=== PATIENT | female | born 1945 | race Caucasian/White ===

== ENCOUNTER 2017-12-14 12:04 | Inpatient (IN) | payer MEDICARE ==
[~2017-12-14] VITALS: Ht 165.1 cm; Wt 91.2 kg
--- OUTSIDE RECORDS SUMMARY | 2017-12-14 12:06 | XMS REPORT | Clinical Summary ---
Author Author [facility] Address Unknown Phone Unavailable Care Team Providers Care Exchange Operator Name Role Phone Baldev Cameron MD PCP Allergies Active Allergy Reactions Severity Noted Date Comments Sulfa (Sulfonamide Hives, Swelling 02/06/2017 Antibiotics) Current Medications Prescription Sig. Disp. Refills Start End Date Status Date diclofenac (VOLTAREN) 1 % Apply 1 application Active gel topically 3 (three) times a day. gabapentin (NEURONTIN) Take 300 mg by mouth Active 300 mg capsule daily. lactulose 10 gram/15 mL Take 30 g by mouth 2 Active (15 mL) solution (two) times a day. lisinopril Take 10 mg by mouth Active (PRINIVIL,ZESTRIL) 10 mg daily. tablet polyethylene glycol Take 17 g by mouth 2 Active (MIRALAX) 17 gram packet (two) times a day. miconazole (MICOTIN) 100 Insert 100 mg into the Active mg vaginal suppository vagina nightly. multivitamin with Take 1 tablet by mouth Active minerals tablet daily. insulin NPH (HumuLIN-N) Inject 10 Units under the Active 100 unit/mL injection skin nightly. nystatin (MYCOSTATIN) Apply 1 application Active 100,000 unit/gram powder topically 3 (three) times a day. Apply to under bilateral breast topically three times a day for rash Saccharomyces boulardii Take 250 mg by mouth 2 Active (FLORASTOR) 250 mg (two) times a day. capsule torsemide (DEMADEX) 10 MG Take 10 mg by mouth Active tablet daily. traMADol (ULTRAM) 50 mg Take 25 mg by mouth 3 Active tablet (three) times a day. traMADol (ULTRAM) 50 mg Take 50 mg by mouth Active tablet nightly. sertraline (ZOLOFT) 50 MG Take 75 mg by mouth Active tablet daily. Active Problems Not on file Encounters Date Type Specialty Care Team Description 02/06/2017 Hospital Radiology Braeden Varma MD Osteomyelitis of vertebra Encounter 02/06/2017 Ancillary Access Braeden Varma MD Osteomyelitis of vertebra Orders 01/30/2017 Transcribe Access Braeden Varma MD Osteomyelitis of vertebra Orders (Primary Dx) after 12/13/2016 Social History Tobacco Use Types Packs/Day Years Used Date Never Assessed Sex Assigned at Date Recorded Not on file Last Filed Vital Signs Vital Sign Reading Time Taken Blood Pressure 178/114 02/06/2017 12:09 PM [facility] [employer] Pulse 88 02/06/2017 12:09 PM [employer] [employer] Temperature 36.4 C (97.6 F) 02/06/2017 12:09 PM [employer] [employer] Respiratory Rate 16 02/06/2017 12:09 PM [employer] [employer] Oxygen Saturation 96% 02/06/2017 10:19 AM [employer] [employer] Inhaled Oxygen - - Concentration Weight 85.7 kg (189 lb) 02/06/2017 10:19 AM [employer] Height 165.1 cm (5' 5") 02/06/2017 10:19 AM [employer] [employer] Body Mass Index 31.45 02/06/2017 10:19 AM [employer] Plan of Treatment Health Maintenance Due Date Last Done Comments BREAST CANCER SCREENING 11/26/1993 COLON CANCER SCREENING 11/26/1993 SHINGRIX VACCINE (#1) 11/26/1993 ZOSTER VACCINE 2003 PNEUMOCOCCAL 11/26/2008 POLYSACCHARIDE VACCINE AGE 65 AND OVER PNEUMOCOCCAL-13 11/26/2008 INFLUENZA VACCINE 09/12/2017 Procedures Procedure Name Priority Date/Time Associated Diagnosis Comments IR ENDOVASCULAR CONSULT Routine 02/06/2017 Osteomyelitis of vertebra Results for this 11:40 AM [employer] procedure are in the results section. ZZESTIMATED GFR STAT 02/06/2017 Results for this 10:35 AM [employer] procedure are in the results section. HC COMPLETE BLD COUNT STAT 02/06/2017 Results for this W/AUTO DIFF 10:35 AM [employer] procedure are in the results section. PARTIAL THROMBOPLASTIN STAT 02/06/2017 Results for this TIME (PTT) 10:35 AM [employer] procedure are in the results section. PROTHROMBIN TIME WITH INR STAT 02/06/2017 Results for this 10:35 AM [employer] procedure are in the results section. BASIC METABOLIC PANEL STAT 02/06/2017 Results for this 10:35 AM [employer] procedure are in the results section. after 12/13/2016 Results * IR Endovascular Consult (02/06/2017 11:40 AM) Narrative Performed At Examination:IR ENDOVASCULAR CONSULT [facility] Clinical history:"M46.20 Osteomyelitis of vertebrasite unspecified, Osteomyeliltis" Comparison:There are no prior studies for comparison. Anesthesia:Lidocaine solution was injected into the involved tissues. Technique: The patient was prepared using sterile technique after signed, informed consent was obtained. Maximal sterile barrier technique was implemented.The suture securing the catheter to the skin surface was severed.The cuff of the indwelling left internal jugular tunneled central venous catheter was bluntly dissected from the soft tissues.The catheter was then removed without incident.Hemostasis was established at the venotomy/catheter exit site by applying direct pressure. Estimated blood loss:Less than 1 cc. Complications:None. Specimens removed:Not applicable. Assistants:None. IMPRESSION:The patient's indwelling left internal jugular tunneled central venous catheter was removed without incident as described above. Thank you for allowing us to participate in the care of your patient. [facility]-[id number] Procedure Note Hm Interface, Radiology Results Incoming - 02/16/2017 11:49 AM [employer] Examination: IR ENDOVASCULAR CONSULT Clinical history: "M46.20 Osteomyelitis of vertebra site unspecified, Osteomyeliltis" Comparison: There are no prior studies for comparison. Anesthesia: Lidocaine solution was injected into the involved tissues. Technique: The patient was prepared using sterile technique after signed, informed consent was obtained. Maximal sterile barrier technique was implemented. The suture securing the catheter to the skin surface was severed. The cuff of the indwelling left internal jugular tunneled central venous catheter was bluntly dissected from the soft tissues. The catheter was then removed without incident. Hemostasis was established at the venotomy/catheter exit site by applying direct pressure. Estimated blood loss: Less than 1 cc. Complications: None. Specimens removed: Not applicable. Assistants: None. IMPRESSION: The patient's indwelling left internal jugular tunneled central venous catheter was removed without incident as described above. Thank you for allowing us to participate in the care of your patient. [facility]-[id number] Performing Organization Address City/[facility]/Zipcode Phone Number [address] [place] [address] * Estimated GFR (02/06/2017 10:35 AM) GFR Non Af Amer 20 (A) mL/min/1.73 m2 [facility] DEPARTMENT OF PATHOLOGY AND [employer] MEDICINE GFR Af Amer 24 (A) mL/min/1.73 m2 [facility] DEPARTMENT OF Comment: PATHOLOGY AND Chronic kidney disease: <60 GENOMIC MEDICINE mL/min/1.73m2 Kidney failure: <15 mL/min/1.73m2 The estimated GFR is calculated from the IDMS-traceable Modification of Diet in Renal Disease Equation. The accuracy of the calculation is poor when the creatinine is normal. Calculated values >90 mL/min/1.73m2 are not reported. This equation has not been validated in children (<18 years), women, the elderly (>70 years), or ethnic groups other than Caucasians and Americans. Specimen Plasma specimen Performing Organization Address [facility] Phone Number [address] [place] [address] PATHOLOGY AND [employer] [facility] * Partial thromboplastin time, activated (02/06/2017 10:35 AM) PTT 30.3 23.0 - 36.0 sec [facility] DEPARTMENT OF Comment: PATHOLOGY AND PTT therapeutic range for [facility] unfractionated heparin is 61.0-112.0 seconds which corresponds to Anti-Xa 0.3-0.7 U/ml. Note:Change in Panic Value The PTT Panic Value is changing from 110 sec. to 100 sec. due to new instrumentation and reagents. Correlation studies have been performed to validate this result. Specimen Blood Performing Organization Address [facility] Phone Number [address] [place] [address] PATHOLOGY AND GENOMIC MEDICINE * Prothrombin time with INR (02/06/2017 10:35 AM) Prothrombin time 13.5 12.0 - 15.0 sec [facility] DEPARTMENT OF PATHOLOGY AND GENOMIC MEDICINE INR 1.02 0.92 - 1.12 [facility] DEPARTMENT OF Comment: PATHOLOGY AND For patients on anticoagulant GENOMIC MEDICINE therapy, reference ranges below: Indication: INR Value Treatment of Venous Thrombosis, 2.0-3.0 pulmonary emboli, or prophylaxis of a venous thrombosis, or systemic emboli. High dose, high risk patients 3.0-4.5 with mechanical valves. NOTE:INR values over 3.0 are sometimes associated with gastrointestinal hemorrhage, especially values over 4.0. Specimen Blood Performing Organization Address City/State/Zipcode Phone Number [facility] [address] [place] [address] PATHOLOGY AND GENOMIC MEDICINE * CBC with platelet and differential (02/06/2017 10:35 AM) WBC 8.2 4.2 - 11.0 k/uL [facility] DEPARTMENT OF PATHOLOGY AND GENOMIC MEDICINE RBC 3.70 (L) 4.04 - 5.86 m/uL [facility] DEPARTMENT OF PATHOLOGY AND GENOMIC MEDICINE HGB 11.7 11.5 - 15.3 g/dL [facility] DEPARTMENT OF PATHOLOGY AND GENOMIC MEDICINE HCT 37.1 34.0 - 45.0 % [facility] DEPARTMENT OF PATHOLOGY AND GENOMIC MEDICINE MCV 100.3 (H) 80.0 - 98.0 fL [facility] DEPARTMENT OF PATHOLOGY AND GENOMIC MEDICINE MCH 31.6 27.0 - 34.0 pg [facility] DEPARTMENT OF PATHOLOGY AND GENOMIC MEDICINE MCHC 31.5 31.5 - 36.5 g/dL [facility] DEPARTMENT OF PATHOLOGY AND GENOMIC MEDICINE RDW - SD 57.1 (H) 37.0 - 51.0 fL [facility] DEPARTMENT OF PATHOLOGY AND GENOMIC MEDICINE MPV 11.6 (H) 7.4 - 10.4 fL [facility] DEPARTMENT OF PATHOLOGY AND GENOMIC MEDICINE Platelet count 243 150 - 400 k/uL [facility] DEPARTMENT OF PATHOLOGY AND GENOMIC MEDICINE Nucleated RBC 0.00 /100 WBC [facility] DEPARTMENT OF PATHOLOGY AND GENOMIC MEDICINE Neutrophils 47.9 36.0 - 66.0 % [facility] DEPARTMENT OF PATHOLOGY AND GENOMIC MEDICINE Lymphocytes 38.6 24.0 - 44.0 % [facility] DEPARTMENT OF PATHOLOGY AND GENOMIC MEDICINE Monocytes 8.2 (H) 0.0 - 6.0 % [facility] DEPARTMENT OF PATHOLOGY AND GENOMIC MEDICINE Eosinophils 4.4 0.0 - 6.0 % [facility] DEPARTMENT OF PATHOLOGY AND GENOMIC MEDICINE Basophils 0.7 0.0 - 1.2 % [facility] DEPARTMENT OF PATHOLOGY AND GENOMIC MEDICINE Immature granulocytes 0.2 0.0 - 1.0 % [facility] DEPARTMENT OF PATHOLOGY AND GENOMIC MEDICINE Specimen Blood Performing Organization Address City/[facility] Phone Number [facility] [address] [place] [address] PATHOLOGY AND GENOMIC MEDICINE * Basic metabolic panel (02/06/2017 10:35 AM) Sodium 142 135 - 150 mEq/L [facility] DEPARTMENT OF PATHOLOGY AND GENOMIC MEDICINE Potassium 3.5 3.5 - 5.0 mEq/L [facility] DEPARTMENT OF PATHOLOGY AND GENOMIC MEDICINE Chloride 100 100 - 109 mEq/L [facility] DEPARTMENT OF PATHOLOGY AND GENOMIC MEDICINE CO2 35 (H) 24 - 32 mmol/L [facility] DEPARTMENT OF PATHOLOGY AND GENOMIC MEDICINE Anion gap 7 7 - 15 mEq/L [facility] DEPARTMENT OF Comment: PATHOLOGY AND Starting from May GENOMIC MEDICINE , anion gap calculation no longer incorporates potassium. Please note the change. BUN 52 (H) 7 - 18 mg/dL [facility] DEPARTMENT OF PATHOLOGY AND GENOMIC MEDICINE Creatinine 2.4 (H) 0.8 - 1.5 mg/dL [facility] DEPARTMENT OF PATHOLOGY AND GENOMIC MEDICINE Glucose 143 (H) 65 - 100 mg/dL [facility] DEPARTMENT OF PATHOLOGY AND GENOMIC MEDICINE Calcium 8.4 (L) 8.6 - 10.7 mg/dL [facility] DEPARTMENT OF PATHOLOGY AND GENOMIC MEDICINE Specimen Plasma specimen Performing Organization Address City/[facility]ode Phone Number [facility] [address] [place] [address] PATHOLOGY AND GENOMIC MEDICINE after 12/13/2016 Insurance Payer Benefit Subscriber ID Type Phone Address Plan / Group BCBS MEDICARE BLUE xxxxxxxxxxxx HMO MEDICARE ADVANTAGE HMO Home: [phone] [place] [id number]
--- OUTSIDE RECORDS SUMMARY | 2017-12-14 12:06 | XMS REPORT | CCD ---
Author Author Auto Generated Organization [facility] Address Unknown Phone Unavailable Care Team Providers Care Refrigeration Tech Name Role Phone ThorSonny CP [phone] Allergies, Adverse Reactions, Alerts Substance Reaction Status sulfa drugs Active Problem List Condition Effective Dates Status Anxiety Active Depression Active Hyperlipidemia Active Hypertension Active Sleep apnea Active Type 2 diabetes mellitus Active Medications Medication Instructions Start Date End Date Status DHEA 50 mg oral 50 mg=1 tabs, Oral, Daily, # 30 08/26/2014 09/09/2014 Ordered tablet tabs, 0 Refill(s) Vitamin D3 400 intl 1,200 IntUnit=3 tabs, Oral, Daily, 08/26/2014 09/09/2014 Ordered units oral tablet 0 Refill(s) metFORMIN 500 mg=1 tabs, Tab, Oral, BID, 08/29/2014 08/29/2014 Discontinued first dose 08/29/14 9:00:00 CDT cloNIDine 0.1 mg=1 tabs, Tab, Oral, As 08/28/2014 08/29/2014 Discontinued Indicated PRN for hypertension, first dose 08/28/14 20:40:00 CDT Probiotic Formula 1 caps, Oral, Daily, 0 Refill(s) 08/26/2014 09/09/2014 Ordered aspirin 81 mg oral 81 mg=1 tabs, Oral, Daily, 0 08/26/2014 09/09/2014 Ordered tablet Refill(s) ceFAZolin 2 gm, Soln-IV, IV Piggyback, Once, 08/28/2014 08/28/2014 Completed infuse over 30 minutes, first dose 08/28/14 13:46:00 CDT, stop date 08/28/14 13:46:00 CDT fenofibrate 160 mg, Oral, Daily, 0 Refill(s) 08/26/2014 09/09/2014 Ordered Milk of Magnesia 30 mL, Susp, Oral, Daily PRN for 08/28/2014 08/29/2014 Discontinued constipation, first dose 08/28/14 18:04:00 CDT acetaminophen 500 mg=1 tabs, Tab, Oral, q6hr PRN 08/28/2014 08/29/2014 Discontinued for pain mild-moderate (1-6), first dose 08/28/14 18:04:00 CDTMax 4gm acetaminophen in 24 hours ceFAZolin 1 gm, IV Piggyback, Once, infuse 08/28/2014 08/28/2014 Completed over 30 minutes, first dose 08/28/14 19:00:00 CDT, stop date 08/28/14 19:00:00 CDT ondansetron 4 mg=2 mL, Injection, IV Push, q6hr 08/28/2014 08/29/2014 Discontinued PRN for nausea/vomiting, first dose 08/28/14 18:04:00 CDT traMADol 50 mg=1 tabs, Tab, Oral, q6hr PRN 08/28/2014 08/29/2014 Discontinued for pain mild-moderate (1-6), first dose 08/28/14 18:04:00 CDT morphine 2 mg, Injection, IV Push, q2hr PRN 08/28/2014 08/29/2014 Discontinued for pain mild-moderate (1-6), first dose 08/28/14 18:04:00 CDT Thomas 10 mg-325 mg 1 tabs, Tab, Oral, q4hr, first dose 08/28/2014 08/28/2014 Canceled oral tablet 08/28/14 19:00:00 CDTMax 4gm acetaminophen in 24 hours acetaminophen 500 mg=1 tabs, Tab, Oral, q6hr PRN 08/28/2014 08/29/2014 Discontinued for temp greater than 101.5 F (38.6 C), first dose 08/28/14 18:04:00 CDTMax 4gm acetaminophen in 24 hours LR 1,000 mL 1,000 mL, IV, 35 mL/hr, start date 08/28/2014 08/29/2014 Discontinued 08/28/14 18:04:00 CDT Lipitor 20 mg oral 20 mg=1 tabs, Oral, qHS, 0 08/26/2014 09/09/2014 Ordered tablet Refill(s) Coreg 6.25 mg oral 6.25 mg=1 tabs, Oral, BID, 0 08/26/2014 09/09/2014 Ordered tablet Refill(s) Nifedical XL 30 mg, Oral, Daily, 0 Refill(s) 08/26/2014 09/09/2014 Ordered Catapres 0.1 mg, Oral, BID, 0 Refill(s) 08/26/2014 09/09/2014 Ordered Prozac 40 mg oral 40 mg=1 caps, Oral, Daily, 0 08/26/2014 09/09/2014 Ordered capsule Refill(s) Glucophage 850 mg 850 mg=1 tabs, Oral, BID, 0 08/26/2014 09/09/2014 Ordered oral tablet Refill(s) ropivacaine 150 mg=30 mL, Injection, IV, Once, 08/28/2014 08/28/2014 Completed first dose 08/28/14 14:18:00 CDT, stop date 08/28/14 14:18:00 CDT rocuronium 30 mg=3 mL, Injection, IV, Once, 08/28/2014 08/28/2014 Completed first dose 08/28/14 15:22:00 CDT, stop date 08/28/14 15:22:00 CDT Misc Medication 700 mL, Soln-IV, IV, Once, first 08/28/2014 08/28/2014 Completed dose 08/28/14 16:49:00 CDT, stop date 08/28/14 16:49:00 CDT fentaNYL 50 mcg=1 mL, Injection, IV, Once, 08/28/2014 08/28/2014 Completed first dose 08/28/14 16:23:00 CDT, stop date 08/28/14 16:23:00 CDT ceFAZolin 2 gm, Soln-IV, IV, Once, first dose 08/28/2014 08/28/2014 Completed 08/28/14 15:17:00 CDT, stop date 08/28/14 15:17:00 CDT propofol 150 mg=15 mL, Emulsion, IV, Once, 08/28/2014 08/28/2014 Completed first dose 08/28/14 15:22:00 CDT, stop date 08/28/14 15:22:00 CDT fentaNYL 50 mcg=1 mL, Injection, IV, Once, 08/28/2014 08/28/2014 Completed first dose 08/28/14 15:22:00 CDT, stop date 08/28/14 15:22:00 CDT midazolam 2 mg=2 mL, Injection, IV, Once, 08/28/2014 08/28/2014 Completed first dose 08/28/14 14:09:00 CDT, stop date 08/28/14 14:09:00 CDT fentaNYL 100 mcg=2 mL, Injection, IV, Once, 08/28/2014 08/28/2014 Completed first dose 08/28/14 14:09:00 CDT, stop date 08/28/14 14:09:00 CDT ondansetron 4 mg=2 mL, Injection, IV Push, 08/28/2014 08/29/2014 Discontinued q30min PRN for nausea/vomiting, order duration: 2 doses, first dose 08/28/14 17:41:00 CDT, stop date Limited # of times morphine 2 mg, IV Push, q5min PRN for pain 08/28/2014 08/29/2014 Discontinued severe (7-10), order duration: 5 doses, first dose 08/28/14 17:41:00 CDT, stop date Limited # of times Demerol HCl 12.5 mg=0.5 mL, Injection, IV Push, 08/28/2014 08/29/2014 Discontinued q5min PRN for Pain Mild (1-3), order duration: 4 doses, first dose 08/28/14 17:41:00 CDT, stop date Limited # of times Demerol HCl 12.5 mg=0.5 mL, Injection, IV Push, 08/28/2014 08/29/2014 Discontinued q5min PRN for shivers, order duration: 4 doses, first dose 08/28/14 17:41:00 CDT, stop date Limited # of times morphine 1 mg, IV Push, q5min PRN for Pain 08/28/2014 08/29/2014 Discontinued Moderate (4-6), order duration: 5 doses, first dose 08/28/14 17:41:00 CDT, stop date Limited # of times LR 1,000 mL 1,000 mL, IV, 100 mL/hr, start date 08/28/2014 08/29/2014 Discontinued 08/28/14 13:46:00 CDT, For Adults lidocaine 1% 0.5 mL, Injection, Subcutaneous, 08/28/2014 08/28/2014 Completed injectable solution Once, first dose 08/28/14 14:00:00 CDT, stop date 08/28/14 14:00:00 CDT Thomas 10 mg-325 mg 1 tabs, Tab, Oral, q4hr PRN for 08/28/2014 08/29/2014 Discontinued oral tablet pain mild-moderate (1-6), first dose 08/28/14 18:23:00 CDTMax 4gm acetaminophen in 24 hours Cinnamon 500 mg oral 1,000 mg=2 caps, Oral, BID, # 100 08/26/2014 09/09/2014 Ordered capsule caps, 0 Refill(s) Cranberry 0 Refill(s) 08/26/2014 09/09/2014 Ordered biotin 0 Refill(s) 08/26/2014 09/09/2014 Ordered Vitamin C 500 mg 500 mg=1 tabs, Oral, BID, 0 08/26/2014 09/09/2014 Ordered oral tablet Refill(s) calcium carbonate 0 Refill(s) 08/26/2014 09/09/2014 Ordered Centrum Ultra 1 tabs, Oral, Daily, 0 Refill(s) 08/26/2014 09/09/2014 Ordered Women's Vital Signs Most recent to oldest [Reference Range]: 1 2 3 Temperature Oral [35.8-37.3 DegC] 36.8 DegC (08/29/2014 06:00:00) 36.7 DegC (08/28/2014 19:00:00) Temperature Skin [36-37 DegC] 36.6 DegC (08/28/2014 16:45:00) Temperature Temporal Artery [36.3-37.8 DegC] 36.4 DegC (08/28/2014 13:02:00) Temperature Farenheit 98.24 DegF (08/29/2014 06:00:00) 98.06 DegF (08/28/2014 19:00:00) Peripheral Pulse Rate [55-105 bpm] 89 bpm (08/29/2014 06:00:00) 81 bpm (08/28/2014 13:02:00) Heart Rate Monitored [60-100 bpm] 89 bpm (08/29/2014 05:00:00) 90 bpm (08/28/2014 22:00:00) 85 bpm (08/28/2014 17:40:00) Respiratory Rate [12-20] 18 (08/29/2014 06:00:00) 18 (08/29/2014 05:00:00) 18 (08/28/2014 22:00:00) SpO2 [90-100 %] 96 % (08/29/2014 06:00:00) 96 % (08/29/2014 05:00:00) 94 % (08/28/2014 17:40:00) Blood Pressure [110-120/65-85 mmHg] <content ID='[id number]'>165</content>/<content ID='[id number]'>85</content> mmHg *HI* (08/29/2014 06:00:00) <content ID='[id number]'>165</content>/<content ID='[id number]'>85</content> mmHg *HI* (08/29/2014 05:00:00) <content ID='[id number]'>163</content>/<content ID='[id number]'>83</content> mmHg *HI* (08/28/2014 22:00:00) Mean Arterial Pressure, Cuff 111.7 mmHg (08/29/2014 06:00:00) 111.7 mmHg (08/29/2014 05:00:00) 119.3 mmHg (08/28/2014 17:40:00) Most recent to oldest [Reference Range]: 1 2 3 Height 166 cm (08/28/2014 14:00:00) 166 cm (08/26/2014 14:13:00) Height/Length Dosing 166 cm (08/28/2014 14:00:00) 166 cm (08/26/2014 14:13:00) Height Inches 65.547042 in (08/28/2014 14:00:00) 65 in (08/26/2014 14:13:00) Weight 93.8 kg (08/28/2014 14:00:00) Weight Dosing 93.8 kg (08/28/2014 14:00:00) Weight Pounds 206.36 lb (08/28/2014 14:00:00) [place] Body Weight Calculated 57.815 kg (08/28/2014 14:00:00) BSA Measured 2.288317 m2 (08/28/2014 14:00:00) Body Mass Index 34.534951 kg/m2 (08/28/2014 14:00:00) Results LABORATORY Most recent to oldest [Reference Range]: 1 Hemoglobin [12.0-16.0 gm/dL] 9.6 gm/dL 14 *LOW* (08/26/201412:00) Hematocrit [36.0-48.0 %] 29.6 % 13 *LOW* (08/26/2014:00) PT [12.0-14.7 seconds] 13.9 seconds 4 *NA* (08/26/2014:00) INR [0.85-1.17] 1.07 5, 6 *NA* (08/26/2014:00) PTT [22.9-35.8 seconds] 31.0 seconds 16, 17 *NA* (08/26/2014:00) Sodium Level [135-145 mEq/L] 140 mEq/L 18 *NA* (08/26/201412:00) Potassium Level [3.5-5.1 mEq/L] 4.9 mEq/L 15 *NA* (08/26/201412:00) Chloride Level [95-109 mEq/L] 106 mEq/L 12 *NA* (08/26/201412:00) Total Carbon Dioxide Level [24-32 mEq/L] 25 mEq/L 11 *NA* (08/26/2014:12:00) AGAP [10.0-20.0 mEq/L] 13.9 mEq/L 1 *NA* (08/26/2014:12:00) BUN [7-22 mg/dL] 48 mg/dL 9 *HI* (08/26/201412:00) Creatinine [0.5-1.4 mg/dL] 2.2 mg/dL 19 *HI* (08/26/2014:12:00) Glucose Lvl [70-99 mg/dL] 193 mg/dL 2, 3 *HI* (08/26/2014 15:12:00) Calcium Level [8.5-10.5 mg/dL] 8.6 mg/dL 10 *NA* (08/26/2014 15:12:00) eGFR 22 mL/min/1.73m2 7, 8 *NA* (08/26/2014 15:12:00) 1Reference Lab: [facility], [address] [place] [address] 2Reference Lab: [facility], [address] [place] [address] 3Result Comment: Adult reference range values reflect the clinical guidelines of the [employer]. 4Reference Lab: [facility], [address] [place] [address] 5Reference Lab: [facility], [address] [place] [address] 6Result Comment: RECOMMENDED RANGES FOR PROTIME INR: 2.0-3.0 for most medical and surgical thromboembolic states. 2.5-3.5 for artificial heart valves and recurrent embolism. INR SHOULD BE USED ONLY FOR PATIENTS ON STABLE ANTICOAGULANT THERAPY. 7Reference Lab: [facility], [address] [place] [address] 8Result Comment: The eGFR is calculated using the CKD-EPI formula. In most young, healthy individuals the eGFR will be >90 mL/min/1.73m2. The eGFR declines with age. An eGFR of 60-89 may be normal in some populations, particularly the elderly, for whom the CKD-EPI formula has not been extensively validated. Use of the eGFR is not recommended in the following populations: Individuals with unstable creatinine concentrations, including patients and those with serious co-morbid conditions. Patients with extremes in muscle mass or diet. The data above are obtained from the National Kid[employer] Disease Education Program (NKDEP) which additionally recommends that when the eGFR is used in patients with extremes of body mass index for purposes of drug dosing, the eGFR should be multiplied by the estimated BMI. 9Reference Lab: [facility], [address] [place] [address] 10Reference Lab: [facility], [address] [place] [address] 11Reference Lab: [facility], [place] [address] 12Reference Lab: [facility], [place] [address] 13Reference Lab: [facility], [id number] [place] [address] 14Reference Lab: [facility], [id number] [place] [address] 15Reference Lab: [facility], [id number] [place] [address] 16Reference Lab: [facility], [address] [place] [address] 17Result Comment: Heparin Therapeutic Range: 57 - 92 Seconds 18Reference Lab: [facility], [place] [address] 19Reference Lab: [facility], [id number] [place] [address] Procedures Procedures Date Related Diagnosis appendectomy Colonoscopy endoscopy orif left little toe retina reattachment right eye1 06/30/2014 00:00:00 rotator cuff repair Tubal ligation 1Has an oil bubble in eye to keep instact
--- OUTSIDE RECORDS SUMMARY | 2017-12-14 12:06 | XMS REPORT | Continuity of Care Document ---
Author Author [facility] Interface Address Unknown Phone Unavailable Problems Problem Status Onset Date Classification Date Reported Comments Source Anxiety Active Problem 08/31/2014 [facility] Depression Active Problem 08/31/2014 [facility] Hyperlipidemia Active Problem 08/31/2014 [facility] Hypertension Active Problem 08/31/2014 [facility] Sleep apnea Active Problem 08/31/2014 [facility] Type 2 diabetes mellitus Active Problem 08/31/2014 [facility] Medications Medication Details Route Status Patient Instructions Ordering Provider Order Date Source metFORMIN 500 mg=1 tabs, Tab, Oral, BID, first dose 08/29/14 9:00:00 CDT Inactive D[place] 08/29/2014 [facility] cloNIDine 0.1 mg=1 tabs, Tab, Oral, As Indicated PRN for hypertension, first dose 08/28/14 20:40:00 CDT No Longer Active D[place] 08/29/2014 [facility] ceFAZolin 1 gm, IV Piggyback, Once, infuse over 30 minutes, first dose 08/28/14 19:00:00 CDT, stop date 08/28/14 19:00:00 CDT Inactive Daisetta 08/29/2014 [facility] Bronx 10 mg-325 mg oral tablet 1 tabs, Tab, Oral, q4hr, first dose 08/28/14 19:00:00 CDTMax 4gm acetaminophen in 24 hours Inactive D[place] 08/29/2014 [facility] Bronx 10 mg-325 mg oral tablet 1 tabs, Tab, Oral, q4hr PRN for pain mild-moderate (1-6), first dose 08/28/14 18:23:00 CDTMax 4gm acetaminophen in 24 hours No Longer Active D[place] 08/28/2014 [facility] Milk of Magnesia 30 mL, Susp, Oral, Daily PRN for constipation, first dose 08/28/14 18:04:00 CDT No Longer Active D[place] 08/28/2014 [facility] acetaminophen 500 mg=1 tabs, Tab, Oral, q6hr PRN for pain mild-moderate (1-6), first dose 08/28/14 18:04:00 CDTMax 4gm acetaminophen in 24 hours No Longer Active [place] 08/28/2014 [facility] ondansetron 4 mg=2 mL, Injection, IV Push, q6hr PRN for nausea/vomiting, first dose 08/28/14 18:04:00 CDT No Longer Active [place] 08/28/2014 [facility] traMADol 50 mg=1 tabs, Tab, Oral, q6hr PRN for pain mild- moderate (1-6), first dose 08/28/14 18:04:00 CDT No Longer Active [place] 08/28/2014 [facility] morphine 2 mg, Injection, IV Push, q2hr PRN for pain mild- moderate (1-6), first dose 08/28/14 18:04:00 CDT No Longer Active [place] 08/28/2014 [facility] LR 1,000 mL 1,000 mL, IV, 35 mL/hr, start date 08/28/14 18:04:00 CDT No Longer Active [place] 08/28/2014 [facility] ondansetron 4 mg=2 mL, Injection, IV Push, q30min PRN for nausea/vomiting, order duration: 2 doses, first dose 08/28/14 17:41:00 CDT, stop date Limited # of times No Longer Active [facility] 08/28/2014 [facility] morphine 2 mg, IV Push, q5min PRN for pain severe (7-10), order duration: 5 doses, first dose 08/28/14 17:41:00 CDT, stop date Limited # of times No Longer Active [facility] 08/28/2014 [facility] Demerol HCl 12.5 mg=0.5 mL, Injection, IV Push, q5min PRN for Pain Mild (1-3), order duration: 4 doses, first dose 08/28/14 17:41:00 CDT, stop date Limited # of times No Longer Active [facility] 08/28/2014 [facility] Misc Medication 700 mL, Soln-IV, IV, Once, first dose 08/28/14 16:49:00 CDT, stop date 08/28/14 16:49:00 CDT Inactive [facility] 08/28/2014 [facility] fentaNYL 50 mcg=1 mL, Injection, IV, Once, first dose 08/28/14 16:23:00 CDT, stop date 08/28/14 16:23:00 CDT Inactive [facility] 08/28/2014 [facility] rocuronium 30 mg=3 mL, Injection, IV, Once, first dose 08/28/14 15:22:00 CDT, stop date 08/28/14 15:22:00 CDT Inactive [facility] 08/28/2014 [facility] propofol 150 mg=15 mL, Emulsion, IV, Once, first dose 08/28/14 15:22:00 CDT, stop date 08/28/14 15:22:00 CDT Inactive [facility] 08/28/2014 [facility] fentaNYL 50 mcg=1 mL, Injection, IV, Once, first dose 08/28/14 15:22:00 CDT, stop date 08/28/14 15:22:00 CDT Inactive [facility] 08/28/2014 [facility] ceFAZolin 2 gm, Soln-IV, IV, Once, first dose 08/28/14 15:17:00 CDT, stop date 08/28/14 15:17:00 CDT Inactive [facility] 08/28/2014 [facility] ropivacaine 150 mg=30 mL, Injection, IV, Once, first dose 08/28/14 14:18:00 CDT, stop date 08/28/14 14:18:00 CDT Inactive [facility] 08/28/2014 [facility] midazolam 2 mg=2 mL, Injection, IV, Once, first dose 08/28/14 14:09:00 CDT, stop date 08/28/14 14:09:00 CDT Inactive [facility] 08/28/2014 [facility] fentaNYL 100 mcg=2 mL, Injection, IV, Once, first dose 08/28/14 14:09:00 CDT, stop date 08/28/14 14:09:00 CDT Inactive [facility] 08/28/2014 [facility] lidocaine 1% injectable solution 0.5 mL, Injection, Subcutaneous, Once, first dose 08/28/14 14:00:00 CDT, stop date 08/28/14 14:00:00 CDT Inactive [facility] 08/28/2014 [facility] ceFAZolin 2 gm, Soln-IV, IV Piggyback, Once, infuse over 30 minutes, first dose 08/28/14 13:46:00 CDT, stop date 08/28/14 13:46:00 CDT Inactive [facility] 08/28/2014 [facility] LR 1,000 mL 1,000 mL, IV, 100 mL/hr, start date 08/28/14 13:46:00 CDT, For Adults No Longer Active [facility] 08/28/2014 [facility] Cranberry 0 Refill(s) Active 08/26/2014 [facility] Cinnamon 500 mg oral capsule 1,000 mg=2 caps, Oral, BID, # 100 caps, 0 Refill(s) Active 08/26/2014 [facility] biotin 0 Refill(s) Active 08/26/2014 [facility] Vitamin C 500 mg oral tablet 500 mg=1 tabs, Oral, BID, 0 Refill(s) Active 08/26/2014 [facility] calcium carbonate 0 Refill(s) Active 08/26/2014 [facility] Centrum Ultra Women's 1 tabs, Oral, Daily, 0 Refill(s) Active 08/26/2014 [facility] DHEA 50 mg oral tablet 50 mg=1 tabs, Oral, Daily, # 30 tabs, 0 Refill(s) Active 08/26/2014 [facility] Vitamin D3 400 intl units oral tablet 1,200 IntUnit=3 tabs, Oral, Daily, 0 Refill(s) Active 08/26/2014 [facility] Probiotic Formula 1 caps, Oral, Daily, 0 Refill(s) Active 08/26/2014 [facility] aspirin 81 mg oral tablet 81 mg=1 tabs, Oral, Daily, 0 Refill(s) Active 08/26/2014 [facility] fenofibrate 160 mg, Oral, Daily, 0 Refill(s) Active 08/26/2014 [facility] Lipitor 20 mg oral tablet 20 mg=1 tabs, Oral, qHS, 0 Refill(s) Active 08/26/2014 [facility] Coreg 6.25 mg oral tablet 6.25 mg=1 tabs, Oral, BID, 0 Refill(s) Active 08/26/2014 [facility] Nifedical XL 30 mg, Oral, Daily, 0 Refill(s) Active 08/26/2014 [facility] Catapres 0.1 mg, Oral, BID, 0 Refill(s) Active 08/26/2014 [facility] Prozac 40 mg oral capsule 40 mg=1 caps, Oral, Daily, 0 Refill(s) Active 08/26/2014 [facility] Glucophage 850 mg oral tablet 850 mg=1 tabs, Oral, BID, 0 Refill(s) Active 08/26/2014 [facility] Allergies, Adverse Reactions, Alerts Substance Category Reaction Severity Reaction type Status Date Reported Comments Source sulfa drugs drug allergy Allergy [facility] Immunizations Immunization Date Given Site Status Last Updated Comments Source Results Order Name Results Value Reference Range Date Interpretation Comments Source LABORATORY PTT 31.0 s 22.9 - 35.8 08/26/2014 17Result Comment: Heparin Therapeutic Range: 57 - 92 Seconds [facility] LABORATORY PT 13.9 s 12.0 - 14.7 08/26/2014 4Reference Lab: [facility], [address] [place] [address] LABORATORY INR 1.07 0.85 - 1.17 08/26/2014 6Result Comment: RECOMMENDED RANGES FOR PROTIME INR: 2.0-3.0 for most medical and surgical thromboembolic states. 2.5-3.5 for artificial heart valves and recurrent embolism. INR SHOULD BE USED ONLY FOR PATIENTS ON STABLE ANTICOAGULANT THERAPY. [facility] LABORATORY Carbon Dioxide Level 25 meq/L 24 - 32 08/26/2014 11Reference Lab: [facility], [address] [place] [address] LABORATORY Chloride Level 106 meq/L 95 - 109 08/26/2014 12Reference Lab: [facility], [address] [place] [address] LABORATORY Calcium Level 8.6 mg/dL 8.5 - 10.5 08/26/2014 10Reference Lab: [facility], [address] [place] [address] LABORATORY Potassium Level 4.9 meq/L 3.5 - 5.1 08/26/2014 15Reference Lab: [facility], [address] [place] [address] LABORATORY Sodium Level 140 meq/L 135 - 145 08/26/2014 18Reference Lab: [facility], [address] [place] [address] LABORATORY BUN 48 mg/dL 7 - 22 08/26/2014 HI 9Reference Lab: [facility], [address] [place] [address] LABORATORY Glucose Lvl 193 mg/dL 70 - 99 08/26/2014 HI 3Result Comment: Adult reference range values reflect the clinical guidelines of the [place] [employer]. [facility] LABORATORY Creatinine 2.2 mg/dL 0.5 - 1.4 08/26/2014 HI 19Reference Lab: [facility], [address] [place] [address] LABORATORY eGFR 22 mL/min/1.73m2 08/26/2014 8Result Comment: The eGFR is calculated using [...] should be multiplied by the estimated BMI. [facility] LABORATORY AGAP 13.9 meq/L 10.0 - 20.0 08/26/2014 1Reference Lab: [facility], [address] LABORATORY Hematocrit 29.6 % 36.0 - 48.0 08/26/2014 LOW 13Reference Lab: [facility], [address] LABORATORY Hemoglobin 9.6 g/dL 12.0 - 16.0 08/26/2014 LOW 14Reference Lab: [facility], [address] Vital Signs Vital Sign Value Date Comments Source Temperature Oral (F) 36.8 Lali 08/29/2014 [facility] Systolic (mm Hg) <content ID='[id number]'>165</content>/<content ID='[id number]'>85</content> 08/29/2014 [facility] Respitory Rate 18 08/29/2014 [facility] Peripheral Pulse Rate 89 08/29/2014 [facility] Respitory Rate 18 08/29/2014 [facility] Heart Rate 89 08/29/2014 [facility] Systolic (mm Hg) <content ID='[id number]'>165</content>/<content ID='[id number]'>85</content> 08/29/2014 [facility] Heart Rate 90 08/29/2014 [facility] Respitory Rate 18 08/29/2014 [facility] Systolic (mm Hg) <content ID='[id number]'>163</content>/<content ID='[id number]'>83</content> 08/29/2014 [facility] Temperature Oral (F) 36.7 Lali 08/29/2014 [facility] Heart Rate 85 08/28/2014 [facility] Temperature Oral (F) 36.6 Lali 08/28/2014 [facility] Height 166 cm 08/28/2014 [facility] Weight 34.236250 08/28/2014 [facility] Weight 93.8 08/28/2014 [facility] Peripheral Pulse Rate 81 08/28/2014 [facility] Temperature Oral (F) 36.4 Lali 08/28/2014 [facility] Height 166 cm 08/26/2014 [facility] Encounters Location Location Details Encounter Type Encounter Number Reason For Visit Attending Provider ADM Date DC Date Status Source [facility] Outpatient [id number] Sonny Mcrae 08/28/2014 08/29/2014 Active [facility] Procedures Procedure Code Date Perfomer Comments Source retina reattachment right eye<sup>1</sup> 06/30/2014 1Has an oil bubble in eye to keep instact [facility] appendectomy [facility] Colonoscopy [id number] [facility] endoscopy [facility] orif left little toe [facility] rotator cuff repair [facility] Tubal ligation [id number] [facility]
--- OUTSIDE RECORDS SUMMARY | 2017-12-14 12:06 | XMS REPORT ---
Author Author [facility] Address Unknown Phone Unavailable Care Team Providers Care Sales Support Rep Name Role Phone NONE, NONE Unavailable Unavailable KACY BAKER Unavailable Unavailable Problems This patient has no known problems. Allergies, Adverse Reactions, Alerts This patient has no known allergies or adverse reactions. Medications This patient has no known medications. Encounters Start Date/Time End Date/Time Encounter Type Admission Type Attending Clinicians Care Facility Care Department Encounter ID 2017-03-23 09:05:00 Inpatient C NONE, NONE [facility] PT [id number] 2017-04-19 11:05:00 2017-05-20 23:59:00 Outpatient C KACY BAKER [facility] PT [id number]
[2017-12-14] MEDS ORDERED: LISINOPRIL10 MG PO (12:30)
[2017-12-14] MEDS ORDERED: MYRBETRIQ50 MG PO (12:30)
[2017-12-14] MEDS ORDERED: HYDRALAZINE HCL50 MG PO (12:30)
[2017-12-14] MEDS ORDERED: PANTOPRAZOLE SO40 MG PO (12:30)
[2017-12-14] MEDS ORDERED: GABAPENTIN300 MG PO (12:30)
[2017-12-14] MEDS ORDERED: TRICOR48 MG PO (12:30)
[2017-12-14] MEDS ORDERED: DOXYCYCLINE HY100 MG PO (12:30)
[2017-12-14] MEDS ORDERED: FLUOXETINE HCL40 MG PO (12:30)
[2017-12-14] MEDS ORDERED: ISOSORBIDE MONO20 MG PO (12:30)
[2017-12-14] MEDS ORDERED: LOW DOSE ASPIRI81 MG PO (12:30)
[2017-12-14] MEDS ORDERED: FUROSEMIDE20 MG PO (12:30)
[2017-12-14] MEDS ORDERED: SERTRALINE HCL50 MG PO (12:30)
[2017-12-14] MEDS ORDERED: PANTOPRAZOLE 40 MG 10ML VIAL IV NR (12:32)
[2017-12-14] MEDS ORDERED: ONDANSETRON HCL INJ 2 MG/ML VIAL IV NR (12:45)
[2017-12-14] MEDS ORDERED: SODIUM CHLORIDE 0.9% 500ML 500 ML IV ONE (12:45)
[2017-12-14 12:52] LABS: BASOPHILS # (AUTO) 0.1 (0.0-0.1); BASOPHILS % 0.9 % (0.0-1.0); EOSINOPHILS # (AUTO) 0.3 (0.0-0.4); EOSINOPHILS % 4.3 % (0.0-6.0); HEMATOCRIT 37.4 % (34.2-44.1); HEMOGLOBIN 11.1 g/dL (12.0-16.0); LYMPHOCYTES # (AUTO) 1.3 (1.0-3.2); LYMPHOCYTES % 18.9 % (18.0-39.1); MEAN CORPUSCULAR HEMOGLOBIN 26.9 pg (28-32); MEAN CORPUSCULAR HGB CONC 29.7 g/dL (31-35); MEAN CORPUSCULAR VOLUME 90.8 fL (81-99); MONOCYTES # (AUTO) 0.6 (0.2-0.8); MONOCYTES % 8.4 % (4.4-11.3); NEUTROPHILS # (AUTO) 4.5 (2.1-6.9); NEUTROPHILS % 67.2 % (38.7-80.0); PLATELET COUNT 287 x10e3/uL (140-360); RED BLOOD COUNT 4.12 x10e6/uL (3.6-5.1); RED CELL DISTRIBUTION WIDTH 15.3 % (11.7-14.4)
[2017-12-14 12:56] LABS: INR 1.15; PROTHROMBIN TIME 15.7 seconds (11.9-14.5)
[2017-12-14 12:57] LABS: PARTIAL THROMBOPLASTIN TIME 31.4 seconds (23.8-35.5)
[2017-12-14 13:04] LABS: ALBUMIN 3.1 g/dL (3.5-5.0); ALBUMIN/GLOBULIN RATIO 1.1 (0.8-2.0); ANION GAP 15.3 mmol/L (8-16); CALCIUM 9.4 mg/dL (8.4-10.2); CREATININE, SERUM 2.6 mg/dL (0.57-1.11); MAGNESIUM 2.1 MG/DL (1.3-2.1); POTASSIUM 4.3 mmol/L (3.5-5.1)
[2017-12-14 13:11] LABS: CREATINE KINASE MB 4.1 ng/mL (0-5.0)
--- NOTE | 2017-12-14 13:18 | Diagnostic Imaging Report ---
EXAMINATION: CHEST SINGLE (PORTABLE) INDICATION: Chest pain COMPARISON: None FINDINGS: TUBES and LINES: None. LUNGS: Moderate lung volumes. Mild patchy bibasilar opacities. No evidence of pulmonary edema. PLEURA: No pleural effusion or pneumothorax. HEART AND MEDIASTINUM: Mild enlargement of the cardiomediastinal silhouette. BONES AND SOFT TISSUES: No acute bony abnormality. Partially seen cervical spine fixation hardware and bilateral rotator cuff anchors. UPPER ABDOMEN: No free air under the diaphragm. IMPRESSION: Mild cardiomegaly without evidence of pulmonary edema. Mild patchy bibasilar opacities, likely atelectasis. Signed by: Dr. Hamlet Cristina MD on 12/14/2017 1:14 PM
[2017-12-14 13:27] LABS: B-TYPE NATRIURETIC PEPTIDE2 4379.5 pg/mL (0-100)
[2017-12-14 13:44] LABS: BILIRUBIN,URINE NEGATIVE (NEGATIVE); CLARITY,URINE SL CLOUDY (CLEAR); COLOR,URINE YELLOW (YELLOW); KETONES,URINE NEGATIVE (NEGATIVE); LEUKOCYTE ESTERASE ,URINE 1+ (NEGATIVE); NITRITE,URINE NEGATIVE (NEGATIVE); PROTEIN,URINE DIPSTICK 2+ (NEGATIVE); URINE UROBILINOGEN 0.2 mg/dL (0.2 - 1)
[2017-12-14 13:53] LABS: WBC,URINE (MAN) >50 /HPF (0-5)
[2017-12-14 13:54] LABS: BACTERIA,URINE MANY /HPF; RBC,URINE 0-5 /HPF (0-5)
[2017-12-14] MEDS: CEFTRIAXONE SOD 1 GM VIAL IV SCH (14:25)
--- NOTE | 2017-12-14 15:54 | Diagnostic Imaging Report ---
EXAMINATION: Right upper quadrant ultrasound CLINICAL INDICATION: Abdominal pain COMPARISON: None DISCUSSION: Transverse and longitudinal images of the right upper quadrant were obtained. The liver is normal in size measuring 14centimeters in length in the right midclavicular line and shows normal echogenicity. No focal masses are seen in the liver. There is no intrahepatic biliary dilatation. The common bile duct is normal in caliber and measures 0.4 cm. The main portal vein is normal in caliber and measures 0.9 cm with normal hepatopetal flow. The gallbladder contains multiple gallstones. The gallbladder wall measures 0.3 cm. Negative Hines's sign. The visualized portions of the pancreatic body are unremarkable. The right kidney measures 11.2 centimeters in length. There is normal renal cortical echogenicity and no hydronephrosis, mass or shadowing calculi. The visualized portions of the great vessels are normal. No free fluid is seen. IMPRESSION: Cholelithiasis without cholecystitis Signed by: Dr. Wyatt Cooper M.D. on 12/14/2017 3:51 PM
--- NOTE | 2017-12-14 16:44 | Diagnostic Imaging Report ---
EXAMINATION: CT of the abdomen and pelvis without contrast. TECHNIQUE: Helical CT images of the abdomen and pelvis were performed from the lung bases to the lesser trochanters. No intravenous contrast was given per renal stone protocol. Coronal and sagittal reformatted images were obtained. Dose modulation, iterative reconstruction, and/or weight based adjustment of the mA/kV was utilized to reduce the radiation dose to as low as reasonably achievable. COMPARISON: None. CLINICAL HISTORY:abdominal pain DISCUSSION: ABSENCE OF INTRAVENOUS CONTRAST DECREASES SENSITIVITY FOR DETECTION OF FOCAL LESIONS AND VASCULAR PATHOLOGY. ABDOMEN/PELVIS: LOWER THORAX: Small right pleural effusion and adjacent atelectasis. Right lower lung calcified granuloma. HEPATOBILIARY:No focal hepatic lesions. Cholelithiasis. SPLEEN: No splenomegaly. PANCREAS: No focal masses or ductal dilatation. ADRENALS: No adrenal nodules. KIDNEYS/URETERS: No hydronephrosis, stones, or solid mass lesions. PELVIC ORGANS/BLADDER: Verdugo catheter. PERITONEUM/RETROPERITONEUM: No free air or fluid. LYMPH NODES: No intra-abdominal,retroperitoneal, pelvic or inguinal lymphadenopathy. VESSELS: Vascular calcifications. GI TRACT: Colonic diverticulosis without inflammatory change. BONES AND SOFT TISSUES: Lumbar spondylosis most prominent at L3-L4. IMPRESSION: Cholelithiasis. Diverticulosis. No inflammatory changes Signed by: Dr. Wyatt Cooper M.D. on 12/14/2017 4:41 PM
[2017-12-14] MEDS: METRONIDAZOLE 500MG/NS 100ML 100 ML IV SCH ×2 (17:11→23:14)
[2017-12-14] MEDS ORDERED: SODIUM CHLORIDE 0.9% 1000ML 1,000 ML IV ONE (17:15)
[2017-12-14] MEDS ORDERED: MORPHINE SULFATE 2 MG/ML SYR IV PRN (17:15)
[2017-12-14] MEDS ORDERED: ONDANSETRON HCL INJ 2 MG/ML VIAL IV PRN (17:15)
[2017-12-14] MEDS ORDERED: DEXTROSE 50% SYRINGE 50 ML IV PRN (17:30)
--- OUTSIDE RECORDS SUMMARY | 2017-12-14 17:41 | XMS REPORT | Clinical Summary ---
Author Author [facility] Organization [facility] Address Unknown Phone Unavailable Care Team Providers Care Administrative Services Assistant Name Role Phone Baldev Cameron MD PCP [...] Taken Blood Pressure 178/114 02/06/2017 12:09 PM WAITER/WAITRESS FIRST CLASS Pulse 88 02/06/2017 12:09 PM WAITER/WAITRESS FIRST CLASS Temperature 36.4 C (97.6 F) 02/06/2017 12:09 PM WAITER/WAITRESS FIRST CLASS Respiratory Rate 16 02/06/2017 12:09 PM WAITER/WAITRESS FIRST CLASS Oxygen Saturation 96% 02/06/2017 10:19 AM WAITER/WAITRESS FIRST CLASS Inhaled Oxygen - - Concentration Weight 85.7 kg (189 lb) 02/06/2017 10:19 AM WAITER/WAITRESS FIRST CLASS Height 165.1 cm (5' 5") 02/06/2017 10:19 AM WAITER/WAITRESS FIRST CLASS Body Mass Index 31.45 02/06/2017 10:19 AM WAITER/WAITRESS FIRST CLASS Plan of Treatment Health Maintenance Due Date Last Done Comments BREAST CANCER SCREENING 11/26/1993 COLON CANCER SCREENING 11/26/1993 SHINGRIX VACCINE (#1) 11/26/1993 ZOSTER VACCINE 2003 PNEUMOCOCCAL 11/26/2008 POLYSACCHARIDE VACCINE AGE 65 AND OVER PNEUMOCOCCAL-13 11/26/2008 INFLUENZA VACCINE 09/12/2017 Procedures Procedure Name Priority Date/Time Associated Diagnosis Comments IR ENDOVASCULAR CONSULT Routine 02/06/2017 Osteomyelitis of vertebra Results for this 11:40 AM WAITER/WAITRESS FIRST CLASS procedure are in the results section. ZZESTIMATED GFR STAT 02/06/2017 Results for this 10:35 AM WAITER/WAITRESS FIRST CLASS procedure are in the results section. HC COMPLETE BLD COUNT STAT 02/06/2017 Results for this W/AUTO DIFF 10:35 AM WAITER/WAITRESS FIRST CLASS procedure are in the results section. PARTIAL THROMBOPLASTIN STAT 02/06/2017 Results for this TIME (PTT) 10:35 AM WAITER/WAITRESS FIRST CLASS procedure are in the results section. PROTHROMBIN TIME WITH INR STAT 02/06/2017 Results for this 10:35 AM WAITER/WAITRESS FIRST CLASS procedure are in the results section. BASIC METABOLIC PANEL STAT 02/06/2017 Results for this 10:35 AM WAITER/WAITRESS FIRST CLASS procedure are in the results section. after [...] participate in the care of your patient. [facility]-[id number] Procedure Note Hm Interface, Radiology Results Incoming - 02/16/2017 11:49 AM WAITER/WAITRESS FIRST CLASS Examination: IR ENDOVASCULAR CONSULT Clinical history: "M46.20 [...] participate in the care of your patient. [facility]-[id number] Performing Organization Address City/[facility]/Zipcode Phone Number [address] [place] [address] * Estimated GFR (02/06/2017 10:35 AM) GFR Non Af Amer 20 (A) mL/min/1.73 m2 [facility] DEPARTMENT OF PATHOLOGY AND TwtBks MEDICINE GFR Af Amer 24 (A) mL/min/1.73 m2 [facility] DEPARTMENT OF Comment: PATHOLOGY AND Chronic kidney [...] Americans. Specimen Plasma specimen Performing Organization Address [facility] Phone Number [address] [place] [address] PATHOLOGY AND TwtBks [facility] * Partial thromboplastin time, activated (02/06/2017 10:35 AM) PTT 30.3 23.0 - 36.0 sec [facility] DEPARTMENT OF Comment: PATHOLOGY AND PTT therapeutic range for [facility] unfractionated heparin is 61.0-112.0 seconds which corresponds to Anti-Xa 0.3-0.7 U/ml. Note:Change in Panic Value The PTT Panic Value is changing from 110 sec. to 100 sec. due to new instrumentation and reagents. Correlation studies have been performed to validate this result. Specimen Blood Performing Organization Address [facility] Phone Number [address] [place] [address] PATHOLOGY AND GENOMIC MEDICINE * Prothrombin time with INR (02/06/2017 10:35 AM) Prothrombin time 13.5 12.0 - 15.0 sec [facility] DEPARTMENT OF PATHOLOGY AND GENOMIC MEDICINE INR 1.02 0.92 - 1.12 [facility] DEPARTMENT OF Comment: PATHOLOGY AND For patients [...] Blood Performing Organization Address City/State/Zipcode Phone Number [facility] [address] [place] [address] PATHOLOGY AND GENOMIC MEDICINE * CBC with platelet and differential (02/06/2017 10:35 AM) WBC 8.2 4.2 - 11.0 k/uL [facility] DEPARTMENT OF PATHOLOGY AND GENOMIC MEDICINE RBC 3.70 (L) 4.04 - 5.86 m/uL [facility] DEPARTMENT OF PATHOLOGY AND GENOMIC MEDICINE HGB 11.7 11.5 - 15.3 g/dL [facility] DEPARTMENT OF PATHOLOGY AND GENOMIC MEDICINE HCT 37.1 34.0 - 45.0 % [facility] DEPARTMENT OF PATHOLOGY AND GENOMIC MEDICINE MCV 100.3 (H) 80.0 - 98.0 fL [facility] DEPARTMENT OF PATHOLOGY AND GENOMIC MEDICINE MCH 31.6 27.0 - 34.0 pg [facility] DEPARTMENT OF PATHOLOGY AND GENOMIC MEDICINE MCHC 31.5 31.5 - 36.5 g/dL [facility] DEPARTMENT OF PATHOLOGY AND GENOMIC MEDICINE RDW - SD 57.1 (H) 37.0 - 51.0 fL [facility] DEPARTMENT OF PATHOLOGY AND GENOMIC MEDICINE MPV 11.6 (H) 7.4 - 10.4 fL [facility] DEPARTMENT OF PATHOLOGY AND GENOMIC MEDICINE Platelet count 243 150 - 400 k/uL [facility] DEPARTMENT OF PATHOLOGY AND GENOMIC MEDICINE Nucleated RBC 0.00 /100 WBC [facility] DEPARTMENT OF PATHOLOGY AND GENOMIC MEDICINE Neutrophils 47.9 36.0 - 66.0 % [facility] DEPARTMENT OF PATHOLOGY AND GENOMIC MEDICINE Lymphocytes 38.6 24.0 - 44.0 % [facility] DEPARTMENT OF PATHOLOGY AND GENOMIC MEDICINE Monocytes 8.2 (H) 0.0 - 6.0 % [facility] DEPARTMENT OF PATHOLOGY AND GENOMIC MEDICINE Eosinophils 4.4 0.0 - 6.0 % [facility] DEPARTMENT OF PATHOLOGY AND GENOMIC MEDICINE Basophils 0.7 0.0 - 1.2 % [facility] DEPARTMENT OF PATHOLOGY AND GENOMIC MEDICINE Immature granulocytes 0.2 0.0 - 1.0 % [facility] DEPARTMENT OF PATHOLOGY AND GENOMIC MEDICINE Specimen Blood Performing Organization Address City/[facility] Phone Number [facility] [address] [place] [address] PATHOLOGY AND GENOMIC MEDICINE * Basic metabolic panel (02/06/2017 10:35 AM) Sodium 142 135 - 150 mEq/L [facility] DEPARTMENT OF PATHOLOGY AND GENOMIC MEDICINE Potassium 3.5 3.5 - 5.0 mEq/L [facility] DEPARTMENT OF PATHOLOGY AND GENOMIC MEDICINE Chloride 100 100 - 109 mEq/L [facility] DEPARTMENT OF PATHOLOGY AND GENOMIC MEDICINE CO2 35 (H) 24 - 32 mmol/L [facility] DEPARTMENT OF PATHOLOGY AND GENOMIC MEDICINE Anion gap 7 7 - 15 mEq/L [facility] DEPARTMENT OF Comment: PATHOLOGY AND Starting from May GENOMIC MEDICINE , anion gap calculation no longer incorporates potassium. Please note the change. BUN 52 (H) 7 - 18 mg/dL [facility] DEPARTMENT OF PATHOLOGY AND GENOMIC MEDICINE Creatinine 2.4 (H) 0.8 - 1.5 mg/dL [facility] DEPARTMENT OF PATHOLOGY AND GENOMIC MEDICINE Glucose 143 (H) 65 - 100 mg/dL [facility] DEPARTMENT OF PATHOLOGY AND GENOMIC MEDICINE Calcium 8.4 (L) 8.6 - 10.7 mg/dL [facility] DEPARTMENT OF PATHOLOGY AND GENOMIC MEDICINE Specimen Plasma specimen Performing Organization Address City/[facility] Phone Number [facility] [address] [place] [address] PATHOLOGY AND GENOMIC MEDICINE after 12/13/2016 Insurance Payer Benefit Subscriber ID Type Phone Address Plan / Group BCBS MEDICARE BLUE xxxxxxxxxxxx HMO MEDICARE ADVANTAGE HMO Home: [id number] [place] [id number]
[2017-12-14 20:00] VITALS: BP 158/75
[2017-12-14] MEDS: INSULIN LISPRO 100 UNIT/1 ML 3ML VIAL SQ SCH (21:00)
[2017-12-14 21:14] LABS: CREATINE KINASE MB 2.1 ng/mL (0-5.0)
[2017-12-15] VITALS (7 sets, daily range): BP systolic 97–175; BP diastolic 60–78
[2017-12-15] MEDS: CEFTRIAXONE SOD 1 GM VIAL IV SCH ×2 (01:30→14:15)
[2017-12-15 05:07] LABS: BASOPHILS % 0.7 % (0.0-1.0); EOSINOPHILS # (AUTO) 0.3 (0.0-0.4); EOSINOPHILS % 4.6 % (0.0-6.0); HEMATOCRIT 32.5 % (34.2-44.1); HEMOGLOBIN 9.8 g/dL (12.0-16.0); LYMPHOCYTES # (AUTO) 1.1 (1.0-3.2); LYMPHOCYTES % 19.3 % (18.0-39.1); MEAN CORPUSCULAR HEMOGLOBIN 27.2 pg (28-32); MEAN CORPUSCULAR HGB CONC 30.2 g/dL (31-35); MEAN CORPUSCULAR VOLUME 90.3 fL (81-99); MONOCYTES # (AUTO) 0.6 (0.2-0.8); MONOCYTES % 10.8 % (4.4-11.3); NEUTROPHILS # (AUTO) 3.5 (2.1-6.9); NEUTROPHILS % 64.4 % (38.7-80.0); PLATELET COUNT 208 x10e3/uL (140-360); RED CELL DISTRIBUTION WIDTH 15.3 % (11.7-14.4)
[2017-12-15] MEDS: METRONIDAZOLE 500MG/NS 100ML 100 ML IV SCH ×3 (05:07→18:00)
[2017-12-15 05:35] LABS: ALBUMIN 2.6 g/dL (3.5-5.0); ALBUMIN/GLOBULIN RATIO 1.2 (0.8-2.0); ANION GAP 16.1 mmol/L (8-16); CALCIUM 8.7 mg/dL (8.4-10.2); CREATININE, SERUM 2.35 mg/dL (0.57-1.11); POTASSIUM 4.1 mmol/L (3.5-5.1)
[2017-12-15 05:57] LABS: CREATINE KINASE MB 2.7 ng/mL (0-5.0)
[2017-12-15] MEDS: INSULIN LISPRO 100 UNIT/1 ML 3ML VIAL SQ SCH ×4 (07:30→21:00)
[2017-12-15] MEDS: PANTOPRAZOLE SOD 40 MG TABEC PO SCH (09:00)
[2017-12-15] MEDS: LACTOBACILLUS ACIDOPHILUS CAPSULE PO SCH ×2 (09:00→16:54)
[2017-12-15] MEDS: HYOSCYAMINE 0.125 MG TAB PO SCH ×2 (09:26→16:53)
[2017-12-15 10:59] LABS: CHOL/HDL RATIO 6.7 (3.0-3.6)
[2017-12-15 11:21] LABS: FERRITIN 25.3 ng/mL (4.63-204.00); THYROID STIMULATING HORMONE 3.038 uIU/mL (0.350-4.940)
[2017-12-15] MEDS: METOCLOPRAMIDE HCL 10 MG TAB PO SCH ×3 (11:30→21:06)
[2017-12-15] MEDS: LISINOPRIL 10 MG TAB PO SCH (14:33)
[2017-12-15] MEDS: ISOSORBIDE MONONITRATE 20 MG TAB PO SCH (16:00)
[2017-12-15] MEDS: ENOXAPARIN SOD INJ 40 MG/0.4 ML SYR SC SCH (16:54)
[2017-12-15] MEDS ORDERED: NON-FORMULARY MEDICATION (Hydralazine Hcl 50 MG) PO SCH (17:00)
[2017-12-15] MEDS: HYDRALAZINE HCL 25 MG TAB PO SCH (17:29)
--- NOTE | 2017-12-15 19:59 | Consultation ---
DATE OF CONSULTATION: December 15, 2017 Ms. French is a 72-year-old female with past history of hypertension, diabetes, enlarged heart. Her reported ejection fraction per patient is 35%. Also, she has history of cardiomyopathy. She is under the care of Dr. Jimenez. She came to see us in the office yesterday with nausea and vomiting. Her symptoms are not well controlled by the primary care, refer her for more management. They began to worsening in the past 10 days. Described the nausea and vomiting severe. She cannot keep any food down. No aggravating factor. No alleviating factor. This is associated with chest pain, bilateral pedal edema, dizziness. Also, she complained of diarrhea, but patient said the diarrhea being occurring intermittently in the past year. She denied hematemesis. Denied any chills, fever. Denied seeing blood in the stool. Denied seeing any weight loss. However, she does complain of acid reflux and crampy pain across her lower abdomen and also she noticed that the color of her stool is very dark, almost black. She reported in the past history of GI bleed of unclear etiology where she had transfused 6 units of blood. Because of her constant complaining of pain at the office, she was referred to the emergency room and was evaluated and was admitted. CURRENT MEDICATIONS: In the hospital are Flagyl, Rocephin, Zofran, morphine, and insulin. ALLERGIES: SULFA. PAST SURGICAL HISTORY: She had neck surgery in 2016, kidney surgery in 2016, partial hysterectomy in 1977, right shoulder surgery, left shoulder surgery, and left arm surgery. FAMILY HISTORY: Her mother has colon cancer, diagnosed in her 80s. SOCIAL HISTORY: She is retired. She is . She has 2 kids. She does not drink and does not smoke. PHYSICAL EXAMINATION GENERAL: She is awake, alert and oriented. VITALS: Her temperature 97, her pulse 69, respiratory rate 20, blood pressure 150/68. HEENT: She has normal sclerae. NECK: Supple. LUNGS: Clear to auscultation. HEART: Regular, regular rhythm. She has soft systolic murmur. ABDOMEN: Soft, but very tender across her abdomen and lower abdomen; however, no signs of acute findings such as rigidity, guarding or rebound tenderness. It was tender. MUSCULOSKELETAL: Normal digits. No clubbing, no cyanosis. Normal gait. She does have severe skin breakdown in her right and left inguinal areas from swelling, currently is being treated. LAB TESTS: Her white cell count 5.4, hemoglobin 9.8, hematocrit 32, platelet 208. Her BUN 61, creatinine 2.3, sodium 143, potassium 4, calcium 8.7. Total bilirubin 1.1, AST 81, ALT 74, alkaline phosphatase normal, albumin 2.6. PT 15, INR 1.15, PTT 31. Urinalysis showed more than 50 white cell count. Urine culture is pending. IMPRESSION AND PLAN: Patient known to have gastrointestinal bleed in the past, required 6 units of blood transfusion about 3 years ago. Currently, she is anemic. She denied using any regularly nonsteroidal anti-inflammatory drug. This is of a concern. We need to do anemia workup including iron, B12, and folate. Also at some point when clinically possible need to have upper and lower endoscopy. Her last upper endoscopy and lower endoscopy were several years ago. No reports available. Her current abdominal pain most likely due to the bladder infection and she is currently treated. If she is not better in the next 24 to 48 hours, we will repeat her CT with contrast. The CT scan was done in the emergency room which reveal only gallstone and diverticulosis and no acute finding was done without contrast as well as she had ultrasound of the gallbladder which showed gallstones, but no cholecystitis. I will start her on Protonix also as preventive measures and for her pain, also we will start antispasmodic agent such as hyoscyamine. Regarding her increase in liver enzymes that is noted, the only risk factor for chronic liver disease is that she had blood transfusion 6 units 3 years ago. To evaluate the increase of liver enzymes, I am ordering NITA, anti-smooth muscle antibody, antimitochondrial antibody, iron study, TSH, celiac disease panel, acute hepatitis panel, alpha-fetoprotein and again at some point, we may have to do liver imaging with contrast if she is not better. As far as her intermittent diarrhea, I am ordering a stool for culture, stool for C. diff, and stool for leukocyte. Currently, she has no diarrhea and I started on probiotic as well. Finally, chronically no insufficiency. I would leave this to be managed by the primary care. Job#: [id number] MARGE
--- NOTE | 2017-12-15 22:03 | Consultation ---
DATE OF CONSULTATION: December 15, 2017 CARDIAC CONSULTATION REASON FOR THE CONSULTATION: Advanced heart disease. HISTORY: This 72-year-old lady for the last 2 weeks is having abdominal pain, nausea, vomiting, failure to thrive, diarrhea, and alternating with constipation. She was seen by her PCP twice. She continued to have symptoms. She came to be seen by Dr. Davis. While she was there, she has also complained of chest pain, so he advised her to come to the emergency room and admitted for further management. Cardiac consultation is obtained. I visited the patient's home currently, she is pain free. Her main problem is nausea, vomiting, failure to thrive, and not feeling well. Her problem is really chronic rather than acute. This is going on over the years. She is known to have diabetes of many years' duration. She does have renal insufficiency, seen by kidney doctor. She was seen by Dr. Marley a few months back where she had nuclear stress test. She has been told her ejection fraction of 30%. She need to be treated only medically. They cannot do anything for her heart. Patient is sedentary. She barely does activity. She does have shortness of breath on minimal activity of many years' duration, worsening recently. She had been told she has several MIs, but they were silent. Her heart is very weak. She does have orthopnea, paroxysmal nocturnal dyspnea, easy fatigability, etc., leg edema, and congestive heart failure symptoms class III to early class IV. REVIEW OF SYSTEMS CARDIAC: As per above. PULMONARY: Cough. No pleuritic chest pain. No hemoptysis. GI: As per acute illness. : Incontinence. MUSCULOSKELETAL: Ache and pain. NEUROLOGICAL: Severe peripheral neuropathy. SOCIAL HISTORY: . Nonsmoker. No alcohol drinker. PAST MEDICAL HISTORY 1. Hypertension. 2. Diabetes mellitus. 3. Chronic renal insufficiency. 4. Hyperlipidemia. 5. Depression. 6. Right and left shoulder surgery. 7. Partial hysterectomy. 8. Repeated urinary tract infection. 9. Kidney stones, status post stent in the past with resolution of her stone and infection. 10. Debility. 11. Very limited activity, very abnormal gait. She is staying most of the time in bed. HOME MEDICATIONS: Long list including TriCor 48 mg a day, lisinopril 10 mg a day, Ismo 20 mg a day, hydralazine 50 mg twice a day, Lasix 20 mg a day, aspirin, doxycycline, Zoloft, gabapentin, fluoxetine, Myrbetriq, and Protonix. ALLERGY: SULFA. FAMILY HISTORY: Strongly positive for hypertension and diabetes mellitus. PHYSICAL EXAMINATION GENERAL: Very frail lady, ill. VITAL SIGNS: Height of 5 feet and 5 inches. Weight of 198 pounds. Blood pressure 170/70, heart rate of 70, and respiratory rate of 18. HEENT: Pupils are reactive. NECK: Elevation of jugular venous pulsation. CHEST: Bilateral basal crackles. HEART: Normal 1st and 2nd heart sounds. Tricuspid regurgitation murmur. ABDOMEN: Soft. Liver edge is palpable. Severe fungus infection under the folding of her abdomen and both groins. EXTREMITIES: Edema. Decreased pulses. NEUROLOGIC: Very weak, debilitated. LABORATORY DATA: BUN of 61 and creatinine of 2.4. Hemoglobin of 9.8, hematocrit of 32%, and platelet count of 208,000. White blood cell count of 5.4. AST and ALT mildly elevated at 74 and 81. Bilirubin of 1.1. EKG normal sinus rhythm, left ventricular hypertrophy, ST changes. Chest x-ray, cardiomegaly. Echocardiogram, severe biventricular heart failure and chambers enlargement. Ejection fraction is 20%-25%. Cardiac enzymes are normal. BNP is markedly elevated at 4400. IMPRESSION AND PLAN 1. Advanced congestive heart failure. 2. Diabetes mellitus, severe end-organ damage. 3. Chronic renal insufficiency. 4. Abdominal pain. 5. Failure to thrive. 6. Cholelithiasis. 7. Diverticulosis. 8. Markedly, markedly debilitated. 9. Chronic congestive heart failure like symptoms. This was a lengthy visit for almost more than an hour. We called Dr. Marley who did her cardiac stress test. Her ejection fraction known to be low for a long time. Prognosis is very guarded. Treatment is conservative. We will attendant her while she is here. She can followup with Dr. Marley when she can go home. Case was discussed with patient's and her grandson and case is explained. Dr. Marley also called and we get information from him. Job#: [id number] VAS
[2017-12-16] VITALS (8 sets, daily range): BP systolic 100–173; BP diastolic 56–88
[2017-12-16] MEDS: METRONIDAZOLE 500MG/NS 100ML 100 ML IV SCH ×4 (00:51→18:18)
[2017-12-16] MEDS: CEFTRIAXONE SOD 1 GM VIAL IV SCH (02:07)
[2017-12-16 06:14] LABS: BASOPHILS # (AUTO) 0.1 (0.0-0.1); BASOPHILS % 0.8 % (0.0-1.0); EOSINOPHILS # (AUTO) 0.3 (0.0-0.4); EOSINOPHILS % 4.5 % (0.0-6.0); HEMOGLOBIN 9.6 g/dL (12.0-16.0); LYMPHOCYTES # (AUTO) 1.2 (1.0-3.2); LYMPHOCYTES % 19.6 % (18.0-39.1); MEAN CORPUSCULAR HEMOGLOBIN 27.3 pg (28-32); MEAN CORPUSCULAR VOLUME 90.9 fL (81-99); MONOCYTES # (AUTO) 0.6 (0.2-0.8); MONOCYTES % 9.8 % (4.4-11.3); NEUTROPHILS # (AUTO) 3.9 (2.1-6.9); PLATELET COUNT 233 x10e3/uL (140-360); RED BLOOD COUNT 3.52 x10e6/uL (3.6-5.1); RED CELL DISTRIBUTION WIDTH 15.2 % (11.7-14.4)
[2017-12-16 06:32] LABS: ALBUMIN 2.6 g/dL (3.5-5.0); ALBUMIN/GLOBULIN RATIO 1.1 (0.8-2.0); ANION GAP 12.9 mmol/L (8-16); CALCIUM 8.7 mg/dL (8.4-10.2); CHOL/HDL RATIO 5.7 (3.0-3.6); CREATININE, SERUM 2.21 mg/dL (0.57-1.11); POTASSIUM 3.9 mmol/L (3.5-5.1)
[2017-12-16 06:52] LABS: THYROID STIMULATING HORMONE 4.048 uIU/mL (0.350-4.940)
[2017-12-16] MEDS: PANTOPRAZOLE SOD 40 MG TABEC PO SCH (07:30)
[2017-12-16] MEDS: INSULIN LISPRO 100 UNIT/1 ML 3ML VIAL SQ SCH ×4 (07:30→22:37)
[2017-12-16] MEDS: METOCLOPRAMIDE HCL 10 MG TAB PO SCH ×4 (07:30→22:26)
[2017-12-16] MEDS ORDERED: SINCALIDE 3 MCG/VIAL INJ ONE (08:15)
[2017-12-16] MEDS ORDERED: MEROPENEM 500MG 500 MG in SODIUM CHLORIDE 0.9% 50ML 50 ML IV SCH (09:00)
[2017-12-16] MEDS ORDERED: PANTOPRAZOLE SOD 40 MG TABEC PO SCH (09:00)
[2017-12-16] MEDS ORDERED: FUROSEMIDE 20 MG TAB PO SCH (09:00)
[2017-12-16] MEDS ORDERED: ISOSORBIDE MONONITRATE 20 MG TAB PO SCH (09:00)
[2017-12-16] MEDS: HYDRALAZINE HCL 25 MG TAB PO SCH ×2 (09:48→17:08)
[2017-12-16] MEDS: ASPIRIN 81 MG CHEW TAB PO SCH (09:48)
[2017-12-16] MEDS: MEROPENEM 500 MG VIAL IV SCH ×2 (09:48→22:26)
[2017-12-16] MEDS: ISOSORBIDE MONONITRATE 20 MG TAB PO SCH ×2 (09:49→16:37)
[2017-12-16] MEDS: LISINOPRIL 10 MG TAB PO SCH (09:49)
[2017-12-16] MEDS: FUROSEMIDE 20 MG TAB PO SCH (09:49)
[2017-12-16] MEDS: SERTRALINE HCL 50 MG TAB PO SCH (09:49)
[2017-12-16] MEDS: FLUOXETINE HCL 20 MG CAP PO SCH (09:49)
[2017-12-16] MEDS: HYOSCYAMINE 0.125 MG TAB PO SCH ×2 (09:49→17:08)
[2017-12-16] MEDS: LACTOBACILLUS ACIDOPHILUS CAPSULE PO SCH ×2 (09:49→17:08)
[2017-12-16] MEDS: GABAPENTIN 300 MG CAP PO SCH (09:49)
--- NOTE | 2017-12-16 10:54 | Diagnostic Imaging Report ---
Hepatobiliary Scan with Gallbladder Ejection Fraction Clinical information: Cholelithiasis; gallbladder inflammation Technique: Following intravenous administration of 6.5 millicuries of Tc-99m mebrofenin, dynamic images of the abdomen in the anterior projection were obtained through 52 minutes. Sincalide (CCK analog) 2.0 micrograms was administered intravenously over 30 minutes with additional imaging for determination of gallbladder ejection fraction. Discussion: Perfusion of the liver is normal. Extraction of tracer by the liver parenchyma is mildly prolonged. Tracer appears promptly within the biliary tract. The gallbladder begins to fill at 22 minutes post injection of tracer and fills adequately. Tracer is seen in the small bowel by 40 minutes. There is no contractile response by the gallbladder to the pharmacologic dose of sincalide. No emptying of the gallbladder occurs during the 30 minute infusion. Impression: 1. Filling of the gallbladder excludes acute cystic duct obstruction/acute cholecystitis. 2. The gallbladder ejection fraction is undefined as there is no emptying of the gallbladder during the infusion of sincalide. This absence of a contractile response to sincalide supports the clinical diagnosis of chronic cholecystitis/gallbladder dyskinesia. 3. Scan evidence of mild hepatocyte dysfunction. Signed by: Dr. Sarai Jacques M.D. on 12/16/2017 10:50 AM
[2017-12-16] MEDS: ENOXAPARIN SOD INJ 40 MG/0.4 ML SYR SC SCH (17:08)
--- NOTE | 2017-12-16 18:23 | Consultation ---
DATE OF CONSULTATION: December 16, 2017 RENAL CONSULTATION ADMITTING PHYSICIAN: Dr. Vogel. REASON FOR CONSULTATION: Acute kidney injury. HISTORY OF PRESENT ILLNESS: A 72-year-old female with history of congestive heart failure and chronic kidney disease, presented to [facility] with 2 week history of abdominal pain, nausea, vomiting, and anorexia. Patient was seen by her primary care provider twice, but her symptoms continued despite medical treatment and she was sent to GI for further evaluation. Patient continued to have nausea, vomiting, anorexia. She also had developed some chest pain, dizziness, and intermittent diarrhea. She also complained of melena, and she had severe GI bleed in the past, was sent to the hospital for further evaluation. Patient was admitted and was found to have acute kidney injury. Nephrology consultation was called. Patient was seen at nuclear medicine. She continued to feel weak, but denied any pain. REVIEW OF SYSTEMS: As above including swelling, dyspnea on exertion. Had some chest pain, none currently. All other systems negative. PAST MEDICAL HISTORY 1. Chronic kidney disease stage 3. 2. Hypertension. 3. Diabetes. 4. Dyslipidemia. 5. Depression. 6. Nephrolithiasis. 7. History of GI bleed. PAST SURGICAL HISTORY 1. Bilateral shoulder surgery. 2. Hysterectomy. SOCIAL HISTORY: No tobacco, no alcohol, no IV drugs. FAMILY HISTORY: Noncontributory. ALLERGIES: SULFA. CURRENT MEDICATIONS: Flagyl, ceftriaxone, Reglan, lisinopril, Zofran, gabapentin, Lasix. PHYSICAL EXAMINATION VITALS: Blood pressure 139/67, pulse 79, respiratory rate 20, temperature 97.4. GENERAL: No apparent distress. HEENT: Oropharynx clear. No scleral icterus. No peripheral edema. NECK: Supple. Unable to assess jugular venous pressure. No lymphadenopathy. CHEST: Clear to auscultation anteriorly with decreased breath sounds at bases. CARDIOVASCULAR: Regular rhythm. No murmurs appreciated. ABDOMEN: Soft. Positive bowel sounds. No tenderness or rebound. EXTREMITIES: 1+ pitting edema. No clubbing. No cyanosis. : Verdugo catheter with paz-colored urine. LABS: Sodium 144, potassium 3.9, chloride 110, CO2 of 25, BUN 52, creatinine 2.21, estimated GFR 22. Creatinine on admission was 2.6. White count 6.3, hemoglobin 9.6, hematocrit 32, platelets 233. Urinalysis; 1+ leukocyte esterase, greater than 50 wbc's, many bacteria, coarse granular casts. MICRO: E. coli ESBL. IMAGING: Gallbladder ultrasound shows cholelithiasis without cholecystitis. CT abdomen and pelvis shows no hydronephrosis, stones, solid mass, lesions, cholelithiasis, no inflammatory changes. Chest x-ray, mild cardiomegaly without pulmonary edema. ASSESSMENT AND PLAN 1. Acute kidney injury on stage 3 chronic kidney disease secondary to ongoing infection and component of cardiorenal syndrome. Continue with Lasix. Need to adjust IV antibiotics. Will need to avoid all nephrotoxic medications. We will check urine studies. For now, continue with DEENA inhibitor. 2. Edematous on exam. Continue with Lasix. 3. Urinary tract infection, extended-spectrum beta lactamases. Adjust antibiotics. 4. Electrolytes acceptable 5. Abdominal pain. GI workup ongoing. 6. Hypertension. Blood pressure controlled. Job#: [id number] LPA
[2017-12-17] VITALS (7 sets, daily range): BP systolic 106–167; BP diastolic 55–84
[2017-12-17] MEDS: METRONIDAZOLE 500MG/NS 100ML 100 ML IV SCH ×5 (00:05→23:43)
[2017-12-17 04:25] LABS: BASOPHILS % 0.5 % (0.0-1.0); EOSINOPHILS # (AUTO) 0.2 (0.0-0.4); EOSINOPHILS % 2.5 % (0.0-6.0); HEMATOCRIT 31.2 % (34.2-44.1); HEMOGLOBIN 9.3 g/dL (12.0-16.0); LYMPHOCYTES % 16.2 % (18.0-39.1); MEAN CORPUSCULAR HEMOGLOBIN 27.2 pg (28-32); MEAN CORPUSCULAR HGB CONC 29.8 g/dL (31-35); MEAN CORPUSCULAR VOLUME 91.2 fL (81-99); MONOCYTES # (AUTO) 0.6 (0.2-0.8); MONOCYTES % 9.7 % (4.4-11.3); NEUTROPHILS # (AUTO) 4.3 (2.1-6.9); NEUTROPHILS % 70.8 % (38.7-80.0); PLATELET COUNT 230 x10e3/uL (140-360); RED BLOOD COUNT 3.42 x10e6/uL (3.6-5.1); RED CELL DISTRIBUTION WIDTH 15.4 % (11.7-14.4)
[2017-12-17 04:41] LABS: ANION GAP 13.8 mmol/L (8-16); CALCIUM 8.8 mg/dL (8.4-10.2); CREATININE, SERUM 2.1 mg/dL (0.57-1.11); MAGNESIUM 1.9 MG/DL (1.3-2.1); POTASSIUM 3.8 mmol/L (3.5-5.1)
[2017-12-17] MEDS: INSULIN LISPRO 100 UNIT/1 ML 3ML VIAL SQ SCH ×4 (07:30→21:00)
[2017-12-17] MEDS: MEROPENEM 500 MG VIAL IV SCH ×2 (09:00→21:29)
[2017-12-17] MEDS: ISOSORBIDE MONONITRATE 20 MG TAB PO SCH ×2 (10:51→17:45)
[2017-12-17] MEDS: HYOSCYAMINE 0.125 MG TAB PO SCH ×2 (10:51→17:45)
[2017-12-17] MEDS: ASPIRIN 81 MG CHEW TAB PO SCH (10:51)
[2017-12-17] MEDS: LACTOBACILLUS ACIDOPHILUS CAPSULE PO SCH ×2 (10:51→17:45)
[2017-12-17] MEDS: HYDRALAZINE HCL 25 MG TAB PO SCH ×2 (10:51→18:40)
[2017-12-17] MEDS: METOCLOPRAMIDE HCL 10 MG TAB PO SCH ×4 (10:51→21:29)
[2017-12-17] MEDS: GABAPENTIN 300 MG CAP PO SCH (10:51)
[2017-12-17] MEDS: PANTOPRAZOLE SOD 40 MG TABEC PO SCH (10:51)
[2017-12-17] MEDS: FUROSEMIDE 20 MG TAB PO SCH (10:51)
[2017-12-17] MEDS: SERTRALINE HCL 50 MG TAB PO SCH (10:52)
[2017-12-17] MEDS: METOPROLOL TARTRATE 25 MG TAB PO SCH ×2 (10:52→17:45)
[2017-12-17] MEDS: FLUOXETINE HCL 20 MG CAP PO SCH (10:52)
[2017-12-17] MEDS ORDERED: FUROSEMIDE 20 MG TAB PO NR (11:30)
[2017-12-17] MEDS: NYSTATIN 100,000 UNITS/GM CRM 30GM TUBE TOP SCH (17:00)
[2017-12-17] MEDS: ENOXAPARIN SOD INJ 40 MG/0.4 ML SYR SC SCH (17:45)
[2017-12-17 19:03] LABS: CREATININE,URINE RANDOM 24.63 mg/dL (47-110); TOTAL PROTEIN, URINE 62.1 mg/dL (1-14)
[2017-12-17 22:38] LABS: ALPHA-1-ANTITRYPSIN 169 mg/dL (90-200)
[2017-12-18] VITALS (9 sets, daily range): BP systolic 106–139; BP diastolic 55–85
[2017-12-18 04:34] LABS: BASOPHILS % 0.5 % (0.0-1.0); EOSINOPHILS # (AUTO) 0.2 (0.0-0.4); EOSINOPHILS % 2.5 % (0.0-6.0); HEMATOCRIT 29.8 % (34.2-44.1); HEMOGLOBIN 8.7 g/dL (12.0-16.0); LYMPHOCYTES # (AUTO) 1.2 (1.0-3.2); LYMPHOCYTES % 19.5 % (18.0-39.1); MEAN CORPUSCULAR HEMOGLOBIN 26.9 pg (28-32); MEAN CORPUSCULAR HGB CONC 29.2 g/dL (31-35); MONOCYTES # (AUTO) 0.6 (0.2-0.8); MONOCYTES % 10.6 % (4.4-11.3); NEUTROPHILS % 66.7 % (38.7-80.0); PLATELET COUNT 219 x10e3/uL (140-360); RED BLOOD COUNT 3.24 x10e6/uL (3.6-5.1); RED CELL DISTRIBUTION WIDTH 15.5 % (11.7-14.4)
[2017-12-18 04:53] LABS: ANION GAP 13.8 mmol/L (8-16); CALCIUM 8.7 mg/dL (8.4-10.2); CREATININE, SERUM 2.03 mg/dL (0.57-1.11); POTASSIUM 3.8 mmol/L (3.5-5.1)
[2017-12-18 05:13] LABS: ENDOMYSIAL ANTIBODIES, IGA Negative (Negative)
[2017-12-18] MEDS: METRONIDAZOLE 500MG/NS 100ML 100 ML IV SCH ×3 (05:47→17:08)
[2017-12-18] MEDS: INSULIN LISPRO 100 UNIT/1 ML 3ML VIAL SQ SCH ×4 (07:30→20:56)
[2017-12-18] MEDS: BALSAM PERU/CASTOR OIL 5 GM OINT...G. TP SCH (09:00)
[2017-12-18] MEDS: NYSTATIN 100,000 UNITS/GM CRM 30GM TUBE TOP SCH ×2 (09:00→17:00)
[2017-12-18] MEDS ORDERED: FUROSEMIDE 40 MG TAB PO SCH (09:00)
[2017-12-18] MEDS: PANTOPRAZOLE SOD 40 MG TABEC PO SCH (09:30)
[2017-12-18] MEDS: MEROPENEM 500 MG VIAL IV SCH ×2 (09:30→21:45)
[2017-12-18] MEDS: LACTOBACILLUS ACIDOPHILUS CAPSULE PO SCH ×2 (09:30→17:00)
[2017-12-18] MEDS: METOPROLOL TARTRATE 25 MG TAB PO SCH ×2 (09:30→17:00)
[2017-12-18] MEDS: FLUOXETINE HCL 20 MG CAP PO SCH (09:30)
[2017-12-18] MEDS: ISOSORBIDE MONONITRATE 20 MG TAB PO SCH ×2 (09:30→16:00)
[2017-12-18] MEDS: HYOSCYAMINE 0.125 MG TAB PO SCH ×2 (09:30→17:00)
[2017-12-18] MEDS: ASPIRIN 81 MG CHEW TAB PO SCH (09:30)
[2017-12-18] MEDS: HYDRALAZINE HCL 25 MG TAB PO SCH ×2 (09:30→17:00)
[2017-12-18] MEDS: SERTRALINE HCL 50 MG TAB PO SCH (09:30)
[2017-12-18] MEDS: METOCLOPRAMIDE HCL 10 MG TAB PO SCH ×4 (09:30→21:00)
[2017-12-18] MEDS: GABAPENTIN 300 MG CAP PO SCH (09:30)
[2017-12-18 13:55] LABS: ALBUMIN 2.7 g/dL (3.5-5.0); BILIRUBIN,DIRECT 0.6 mg/dL (0.0-0.5)
--- NOTE | 2017-12-18 14:02 | Progress Note ---
DATE: December 18, 2017 SUBJECTIVE: Ms. Nunn today doing better. She is awake, alert and oriented. OBJECTIVE VITAL SIGNS: Temperature 99, pulse 71, blood pressure 139/66. Medical problem I have been following: (1) Her abdominal pain has tremendously subsided. She is maintained on anti-spasmodic agent. (2) Her diarrhea also has completely resolved. She has not had a bowel movement for the last 2 days. She is maintained on probiotic. (3) Her anemia workup revealed normal B12, normal RBCs, folate, reticulocyte count elevated at 2.8, and iron saturation very low at 5%. Will go ahead and schedule today for evaluation with upper endoscopy and at some point when she is clinically better, she needs to have also a colonoscopy. Chronic renal insufficiency is followed by the primary care. (4) Her urine infection grew more than 100% E. coli. The patient maintained on antibiotics. (5) Increased liver enzymes has continued to improve since admission. On December 15, her AST was 81 and on December 16, her AST is 46. On December 15, her ALT is 74. On December 16, her ALT is 57. Her alkaline phosphatase and bilirubin are normal. She could have passed a small stone contributed to her nausea which also has resolved. PLAN: 1. As I said earlier, to perform upper endoscopy for evaluation of her anemia, and so far we have not had stool to guaiac because she has not had bowel movement. Her last hemoglobin 8.7, hematocrit 30, platelets 219,000. 2. As far as the liver function, will continue to watch. If they continue to improve, will obtain new liver function today. Her liver workup reveals anti-smooth muscle negative. Antimitochondrial negative. TSH normal. Celiac disease negative. Hepatitis C negative. Alpha fetoprotein negative. Alpha-1 antitrypsin normal. Again, will repeat her liver function today. This could be related to passing stones. Job#: [id number]
[2017-12-18] MEDS ORDERED: BENZOCAINE/TETRACAINE/BUTAMBEN AERO SPRAY 56 GM CAN ONE (14:24)
--- NOTE | 2017-12-18 15:19 | Progress Note ---
DATE: December 18, 2017 I had a phone call with her explaining to him the necessity for EGD because of her anemia and when she was admitted with severe nausea and abdominal pain. Also, I went over the fact that she may have recently passed a stone, which explained the recent elevation and subsequently improving her liver function. I went over her HIDA scan results, which did not show an ejection fraction, and the fact that the surgeon did not feel she is a good candidate for cholecystectomy at this point. I went with him over the fact that at some point when she recovers clinically, possibly that we need to still do colonoscopy. He reminded me again of the fact that several years ago she had a major GI bleed, and according to him required 9 units of blood transfusion. She had extensive workup with no clear cause found at the end. I explained to him that her nausea could be related to her current bladder infection, current gallstone disease, or of course related to peptic ulcer disease. I explained to him that we will give her minimal sedation, and the purpose is to make sure she does not have H. pylori or any peptic ulcer disease. Job#: [id number]
[2017-12-18] MEDS: ENOXAPARIN SOD INJ 40 MG/0.4 ML SYR SC SCH (17:08)
[2017-12-18] MEDS ORDERED: LIDOCAINE HCL 2% LOCAL INJ 5 ML SDV VIAL INJ ONE (19:26)
[2017-12-18] MEDS ORDERED: PROPOFOL IV EMULSION 10 MG/ML 20 ML VIAL ONE (19:26)
[2017-12-19] VITALS: BP 122/72
[2017-12-19] MEDS: METRONIDAZOLE 500MG/NS 100ML 100 ML IV SCH ×4 (00:30→18:10)
[2017-12-19 04:00] VITALS: BP 113/90
[2017-12-19 04:37] LABS: BASOPHILS % 0.4 % (0.0-1.0); EOSINOPHILS # (AUTO) 0.2 (0.0-0.4); EOSINOPHILS % 2.4 % (0.0-6.0); HEMATOCRIT 30.9 % (34.2-44.1); HEMOGLOBIN 9.3 g/dL (12.0-16.0); LYMPHOCYTES # (AUTO) 1.2 (1.0-3.2); LYMPHOCYTES % 18.4 % (18.0-39.1); MEAN CORPUSCULAR HEMOGLOBIN 27.8 pg (28-32); MEAN CORPUSCULAR HGB CONC 30.1 g/dL (31-35); MEAN CORPUSCULAR VOLUME 92.5 fL (81-99); MONOCYTES # (AUTO) 0.7 (0.2-0.8); MONOCYTES % 9.9 % (4.4-11.3); NEUTROPHILS # (AUTO) 4.6 (2.1-6.9); NEUTROPHILS % 68.5 % (38.7-80.0); PLATELET COUNT 210 x10e3/uL (140-360); RED BLOOD COUNT 3.34 x10e6/uL (3.6-5.1); RED CELL DISTRIBUTION WIDTH 15.6 % (11.7-14.4)
[2017-12-19 04:52] LABS: ANION GAP 13.6 mmol/L (8-16); CALCIUM 8.9 mg/dL (8.4-10.2); CREATININE, SERUM 2.11 mg/dL (0.57-1.11); POTASSIUM 3.6 mmol/L (3.5-5.1)
[2017-12-19] MEDS ORDERED: SODIUM CHLORIDE 0.9% 250ML 250 ML ONE (04:55)
[2017-12-19] MEDS: INSULIN LISPRO 100 UNIT/1 ML 3ML VIAL SQ SCH ×3 (07:30→16:30)
[2017-12-19 07:55] VITALS: BP 190/89
[2017-12-19] MEDS: MEROPENEM 500 MG VIAL IV SCH (08:09)
[2017-12-19] MEDS: METOCLOPRAMIDE HCL 10 MG TAB PO SCH ×3 (08:09→18:09)
[2017-12-19] MEDS: PANTOPRAZOLE SOD 40 MG TABEC PO SCH (08:09)
[2017-12-19] MEDS: HYDRALAZINE HCL 25 MG TAB PO SCH ×2 (08:09→18:10)
[2017-12-19] MEDS: GABAPENTIN 300 MG CAP PO SCH (08:10)
[2017-12-19] MEDS: FUROSEMIDE 40 MG TAB PO SCH ×2 (08:10→18:09)
[2017-12-19] MEDS: METOPROLOL TARTRATE 25 MG TAB PO SCH ×2 (08:10→18:10)
[2017-12-19] MEDS: ASPIRIN 81 MG CHEW TAB PO SCH (08:10)
[2017-12-19] MEDS: HYOSCYAMINE 0.125 MG TAB PO SCH ×2 (08:10→18:09)
[2017-12-19] MEDS: ISOSORBIDE MONONITRATE 20 MG TAB PO SCH ×2 (08:10→18:10)
[2017-12-19] MEDS: LACTOBACILLUS ACIDOPHILUS CAPSULE PO SCH ×2 (08:11→18:10)
[2017-12-19] MEDS: BALSAM PERU/CASTOR OIL 5 GM OINT...G. TP SCH (08:11)
[2017-12-19] MEDS: NYSTATIN 100,000 UNITS/GM CRM 30GM TUBE TOP SCH ×2 (08:11→18:10)
[2017-12-19] MEDS: FLUOXETINE HCL 20 MG CAP PO SCH (08:11)
[2017-12-19] MEDS: SERTRALINE HCL 50 MG TAB PO SCH (08:11)
[2017-12-19 08:31] LABS: ANISOCYTOSIS SLIGHT; HYPOCHROMASIA MODERATE; PLATELET ESTIMATE ADEQUATE; PLATELET MORPHOLOGY COMMENT FEW LARGE; RBC MORPHOLOGY COMMENT NORMAL
[2017-12-19 08:47] VITALS: BP 98/89
[2017-12-19] MEDS ORDERED: POLYETHYLENE GLYCOL 3350 17 GM PACK PO SCH (09:00)
[2017-12-19 12:20] VITALS: BP 146/69
[2017-12-19 16:34] VITALS: BP 136/72
[2017-12-19] MEDS: ENOXAPARIN SOD INJ 40 MG/0.4 ML SYR SC SCH (18:10)
--- NOTE | 2018-02-12 02:23 | Discharge Summary ---
CHIEF COMPLAINT: Chest pain, abdominal pain, and congestive heart failure. FINAL DIAGNOSES: 1. Advanced congestive heart failure. 2. Chronic kidney disease, stage 3. 3. Diabetes type 2. 4. Urinary tract infection. 5. Anemia. PROCEDURES: EGD by Dr. Davis. DISPOSITION: Amanda Ro. HISTORY AND HOSPITAL COURSE: This 72-year-old female with known history of hypertension, diabetes type 2, coronary artery disease, chronic congestive heart failure, and hyperlipidemia, brought to the ER with a 1-week history of upper abdominal pain and frequent nausea and vomiting. The patient has been under the care of GI. In the office, the patient developed chest pain and was referred to the ER here for full evaluation. She was having some issues with shortness of breath but no diaphoresis. She underwent evaluation in the ER. She was noted to have inspiratory crackles and rales. Further x-rays and lab work were performed and the patient was admitted to the facility for evaluation and care regarding issues of chest pain, rule out cardiac ischemia, acute over chronic congestive heart failure, diabetes type 2, frequent nausea and vomiting, hypertension, and UTI. We will begin IV Lasix. We will be requesting a cardiology followup. Home medications will continue. We will also start her on IV antibiotics. As she was in the facility undergoing studies and evaluation, she was found to have gallstones by ultrasound and CT. No evidence of cholecystitis. She was reviewed by general surgery by Dr. Machado who stated that the patient has congestive heart failure, renal failure, hypertension, and anemia. The patient does not wish to have surgical intervention at this time, will request to proceed with the GI workup instead. The patient was on the med/surg floor. She was being given a clear liquid diet. She was started on Flagyl. She was given ceftriaxone. Morphine was given for pain control. She was receiving insulin coverage a.c. and h.s. Given PPIs. Laboratory studies were showing stable electrolytes. Kidney functions; BUN 61, creatinine 2.35, and glucose 79. CBC was showing hemoglobin of 9.8. With further progression, cardiology and nephrology were being requested along with GI. She was being seen by Dr. Mendoza from a GI standpoint and he evaluated the patient as having acute kidney injury on chronic kidney disease stage 3. Her medications were continuing. Dr. Machado continues to state that she does not need a cholecystectomy at this time. Continues to have issues with chest congestion and shortness of breath. Hemoglobin was still running in the mid 9s. With the cardiology followup it was noted by Dr. Ruff that she was having issues with congestive heart failure, systolic, acute over chronic; debility; chronic renal insufficiency; requesting that lisinopril to be stopped. She continued to be maintained on a clear liquid diet. Continuing to have the abdominal pain issues, was now also being treated for UTI. She underwent her GI workup by Dr. Davis for evaluation of the persistent abdominal pain. Postprocedure, she was doing well, still resting comfortably, in no acute distress. She will be requiring further management and arrangements were being requested for placement in the skilled facility. Case management was brought in to assist the transfer process and on 12/19/2017 she was able to be transferred to [facility] in stable condition. EKGs were showing normal sinus rhythm, minimal voltage criteria for left ventricular hypertrophy, septal infarct age undetermined, ST-T wave abnormality, considered lateral ischemia. This was followed up with echocardiogram as showing ejection fraction between 30 and 35%. No evidence of pericardial effusion. Procedures as stated EGD per Dr. Davis due to the persistent abdominal pain and the anemia. The procedure was conducted. Findings were showing hiatal hernia and gastritis. Recommend continuing the Protonix, recommend needing a colonoscopy and small bowel evaluation on an outpatient basis, recommend following back up in his office within 2 weeks. As mentioned, she was stabilized and was able to be transferred back to [facility] for continued skilled care. At that location, she will be on her current MARs. She will continue on full code status. She is noted to be incontinent with bowel and bladder. She does have her own walker. I will be evaluating her condition routinely at that facility. Staff will be contacting me as needed. Dictated By: CARRIE Bender Job#: [id number]
== END 2017-12-19 18:29 | disposition home or self-care (01) | DRG 291 ==
LOC: ER 12:04 → ERHOLD 17:37 → MED/SURG2 18:47
PROC: 0DB68ZX Excision of Stomach, Via Natural or Artificial Opening Endoscopic, Diagnostic (ICD-10-PCS; principal; 2017-12-18 16:00)
DX: I13.0 Hypertensive heart and chronic kidney disease with heart failure and stage 1 through stage 4 chronic kidney disease, or unspecified chronic kidney disease (principal); A41.9 Sepsis, unspecified organism; I50.23 Acute on chronic systolic (congestive) heart failure; N17.0 Acute kidney failure with tubular necrosis; N39.0 Urinary tract infection, site not specified; R10.13 Epigastric pain; E86.0 Dehydration; R07.2 Precordial pain; I25.10 Atherosclerotic heart disease of native coronary artery without angina pectoris; I25.2 Old myocardial infarction; E78.5 Hyperlipidemia, unspecified; F41.9 Anxiety disorder, unspecified; Z83.3 Family history of diabetes mellitus; Z82.49 Family history of ischemic heart disease and other diseases of the circulatory system; Z80.0 Family history of malignant neoplasm of digestive organs; D64.9 Anemia, unspecified; K80.20 Calculus of gallbladder without cholecystitis without obstruction; K57.30 Diverticulosis of large intestine without perforation or abscess without bleeding; R53.81 Other malaise; R62.7 Adult failure to thrive; N18.3 Chronic kidney disease, stage 3 (moderate); E11.22 Type 2 diabetes mellitus with diabetic chronic kidney disease; Z16.12 Extended spectrum beta lactamase (ESBL) resistance; B96.20 Unspecified Escherichia coli [E. coli] as the cause of diseases classified elsewhere; K44.9 Diaphragmatic hernia without obstruction or gangrene; K29.70 Gastritis, unspecified, without bleeding
CPT/HCPCS: 36415; 43239; 51700; 71045; 74176; 76705; 78227; 80048; 80053; 80061; 80076; 81001; 82103; 82105; 82550; 82553; 82570; 82607; 82728; 82747; 82784; 82948; 83516; 83540; 83605; 83735; 83880; 84156; 84300; 84443; 84466; 84484; 85025; 85045; 85610; 85730; 86039; 86255; 86256; 87086; 87186; 88305; 88312; 93005; 93306; 94660; 99284; A9537; J0696; J1650; J2001; J2185; J2270; J2405; J2805; J7030; J7040; J7050